=== PATIENT | male | born 1960 | race Caucasian/White ===

== ENCOUNTER 2016-09-19 08:10 | Inpatient (IN) | payer OTHER ==
[~2016-09-19] VITALS: Ht 170.2 cm; Wt 64.9 kg
[~2016-09-19 08:10] MED LIST: GOOD SENSE IBU200 MG PO; NORCO 325 MG-51 TAB PO; XARELTO15 MG PO
--- NOTE | 2016-09-19 08:22 | NUR ---
Informed waiting has been performed.
--- NOTE | 2016-09-19 08:22 | NUR ---
TRIAGE: PT TO ER C/C PAIN TO L LEG FROM CALF UP TO THIGH AREA. WOKE UP WITH SAME YESTERDAY MORNING, CONSTANT AND WORSENING SINCE ONSET. NO KNOWN INJURY OR AGGRAVATING FACTOR. HX BLOOD CLOT TO RLE FEW YEARS AGO, FEELS SIMILIAR.
--- NOTE | 2016-09-19 08:46 | ED UPPER/LOWER EXTREMITY COMPL ---
History of Present Illness General Chief Complaint: Lower Extremity Problems Stated Complaint: LEFT LEG, CALF/KNEE PAIN, SOLLWEN, WARM TO TOUCH Source: patient Exam Limitations: no limitations Vital Signs & Intake/Output Vital Signs & Intake/Output Vital Signs Date Time Temp Pulse Resp B/P Pulse O2 O2 Flow FiO2 Ox Delivery Rate 09/20 06 98.5 73 20 138/78 94 09/19 2223 98.1 69 18 134/80 94 Room Air 09/19 1600 Room Air 09/19 1320 98.6 81 18 140/79 94 Room Air 09/19 1320 94 Room Air ED Intake and Output 09/20 0000 09/19 1200 Intake Total 300 1000 Output Total 300 Balance 0 1000 Intake, IV 1000 Intake, Oral 300 Output, Urine 300 Patient 143 lb 143 lb Weight Allergies Uncoded Allergies: SEASONAL ALLERGIES (Intermediate, NASAL CONGESTION 06/03/14) Reconcile Medications Acetaminophen/Hydrocodone Bi ([place] 325 MG-5 MG) 1 TAB TAB 1-2 TAB PO Q6P PRN DVT Ibuprofen 200 MG TABLET 8 TAB PO DAILY PAIN (Reported) Rivaroxaban (Xarelto) 15 MG TABLET 1 TAB PO BID DVT Triage Note: TRIAGE: PT TO ER C/C PAIN TO L LEG FROM CALF UP TO THIGH AREA. WOKE UP WITH SAME YESTERDAY MORNING, CONSTANT AND WORSENING SINCE ONSET. NO KNOWN INJURY OR AGGRAVATING FACTOR. HX BLOOD CLOT TO RLE FEW YEARS AGO, FEELS SIMILIAR. Triage Nurses Notes Reviewed? yes Onset: Abrupt Duration: day(s): (1 day leg pain), week(s): (FEW WEEKS SOB) Severity: moderate Pain/Injury Location: Left: Leg. Modifying Factors: Worsens With: movement. Associated Symptoms: swelling HPI: 56 year old male presents to the ER for chief complaint of left sided leg pain that started yesterday behind the knee and associated swelling. He tried soaking it overnight several times in water without relief. No trauma, recent travel or immobilization. Symptoms were only presents for 1 day. Admits to recent worsening shortness of breath with exertion. He was at an urgent care two week ago and diagnosed with bronchitis. No chest pain or palpitations. In May he abruptly stopped his coumadin. He states that Dr. Anglin was supposed to call him back to adjust his dose and never called so then he just decided to stop it all together. He is unaware of any familial clotting disorder but his mother also had a DVT. He was on it for a previous DVT in the right leg. No history of PE. No IVC filter. Past History Travel History Traveled to [place] past 21 day No Medical History Any Pertinent Medical History? 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 Yes Review of Systems Review of Systems Constitutional: Denies: chills, fever. EENTM: Reports: no symptoms. Respiratory: Reports: cough, short of breath. Denies: sputum production. Cardiovascular: Reports: peripheral edema. Denies: chest pain, palpitations, syncope. Gastrointestinal/Abdominal: Denies: abdominal pain. Genitourinary: Reports: no symptoms. Musculoskeletal: Reports: muscle pain. Skin: Reports: no symptoms. Neurological/Psychological: Denies: numbness, tingling, weakness. Hematologic/Endocrine: Denies: bruising, bleeding, polyuria, polydipsia. Immunological: Denies: splenectomy. All Other Systems: Reviewed and Negative Physical Exam Physical Exam General Appearance: well developed/nourished, alert, awake, mild distress, moderate distress Head: atraumatic Eyes: Bilateral: PERRL, EOMI. Ears, Nose, Throat: normal pharynx, normal ENT inspection, hearing grossly normal Neck: normal inspection, supple Cardiovascular/Respiratory: regular rate/rhythm, rhonchi Peripheral Pulses: 2+ radial (R), 2+ radial (L), 2+ dorsalis pedis (R), 2+ dorsalis pedis (L) Gastrointestinal: soft nontender Back: normal inspection Leg Left: swelling, pain, soft tissue tenderness, POSITIVE JASPREET Leg Right: normal range of motion, normal inspection Hip Left: normal range of motion, normal inspection Hip Right: normal range of motion, normal inspection Knee Left: normal range of motion, normal inspection Knee Right: normal range of motion, normal inspection Foot Left: normal inspection, normal range of motion Foot Right: normal inspection, normal range of motion Neurologic/Tendon: normal sensation, normal motor functions, normal tendon functions Skin: intact, normal color, warm/dry Lymphatic: no anterior cervical evy Progress Differential Diagnosis: DVT, sprain, POPLITEAL CYST, PE Plan of Care: Orders Procedure Date/time Status LIPID PANEL 09/20 0600 Complete House Staff 09/20 UNK Active PARTIAL THROMBOPLASTIN TIME 09/19 1700 Complete Vital Signs 09/19 132 Active Teach/Educate 09/19 132 Active Pain Treatment and Response 09/19 132 Active Nutritional Intake, Monitor 09/20 1323 Active Isolation 09/19 132 Active Intake & Output 09/19 132 Active Patient Care Conference 09/20 1323 Active Activity/Ambulation 09/19 132 Active MISSING MEDICATION FORM 09/19 UNK Active Current Medications Sig/Amaya Start time Last Medication Dose Stop Time Status Admin Warfarin Sodium 6 MG COUMADIN 1700 ONE 09/20 1700 CAN (Coumadin) 09/20 1701 Nicotine 14 MG DAILY 09/19 2200 AC (Nicotine Cq) Acetaminophen 650 MG Q6P PRN 09/19 1145 AC (Tylenol) Oxycodone/ 1 TAB Q6P PRN 09/19 1145 AC Acetaminophen (Percocet) Laboratory Tests 09/20/16 0630: Anion Gap 7, Estimated GFR > 60, BUN/Creatinine Ratio 15.0, Triglycerides 77, Cholesterol 126, LDL Cholesterol, Calc 52 L, HDL Cholesterol 59, Cholesterol/ HDL Ratio 2, PT 12.9 H, INR 1.23 H, CBC w Diff NO MAN DIFF REQ, RBC 4.77, MCV 96.4 H, MCH 32.2 H, RDW 15.2 H, MPV 9.0, Gran % 66.8, Lymphocytes % 16.8 L, Monocytes % 9.1, Eosinophils % 6.9 H, Basophils % 0.4, Absolute Granulocytes 7.0 H, Absolute Lymphocytes 1.7, Absolute Monocytes 0.9 H, Absolute Eosinophils 0.7, Absolute Basophils 0, PUBS MCHC 33.4 09/19/16 1701: APTT 79 H Diagnostic Imaging: Viewed by Me: CT Scan, Ultrasound. Discussed w/RAD: CT Scan, Ultrasound. Radiology Impression: PATIENT: ADRIANA BREWER PRESENT AGE: 56 PATIENT ACCOUNT NO: [id number] : 58 LOCATION: [facility] ORDERING PHYSICIAN: RAHEEL BARBOZA MD SERVICE DATE: 09/19/16 EXAM TYPE: US - US-UNILATERAL VENOUS DOPPLER EXAMINATION: US TRIPLEX LOWER EXTREMITY, LEFT CLINICAL INFORMATION: Left leg pain, swelling. History of DVT. COMPARISON: Right lower extremity deep venous Doppler study done on 06/02/2014 (was positive at that time). TECHNIQUE: Color-flow triplex imaging with spectral analysis and compression Doppler were performed on the left lower extremity. FINDINGS: Occlusive thrombus is present extending between the proximal part of the left femoral vein to the calf veins. The left common femoral vein is patent. There is a 1.6 x 0.5 x 1.3 cm popliteal fossa, Gan's cyst present. The right common femoral vein was also evaluated, and is patent. IMPRESSION: Positive study for DVT. Occlusive thrombus is noted starting at proximal thigh to the calf. Both common femoral veins are however patent. This critical result was discussed with Dr. Barboza at 9:56 AM on 09/19/2016 and it was ascertained that the content and urgency of the report was understood at the time of direct communication. 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 <Electronically signed in Other Vendor System> SIGNED BY: BUDDY RENO MD 09/19/16 0959 Initial ED EKG: NSR Departure Departure Time of Disposition: 1035 Disposition: STILL A PATIENT Condition: Stable Clinical Impression Primary Impression: Pulmonary embolism Secondary Impressions: DVT (deep venous thrombosis), Tobacco abuse Referrals: SHERWIN ORANTES DO (PCP/Family) Departure Forms: Customer Survey General Discharge Information Admission Note Spoke With: NAWAF LORA M.D Documentation of Exam: Documentation of any treatments & extenuating circumstances including Concerns Regarding Discharge (functional status, medication knowledge or non-compliance, living conditions, etc.) that warrant an admission rather than observation: [IV HEPARIN, MONITOR COAGS, ORAL ANTICOAGULATION, VASCULAR CONSULTATION]
--- NOTE | 2016-09-19 09:13 | NUR ---
BLOOD DRAWN AND SENT TO LAB. LAV,SST,BLUE,SHAW,PINK.
[2016-09-19 09:30] LABS: PT 12.6 SEC (9.4-12.5); PTT 29 SEC (25-37)
[2016-09-19 09:35] LABS: ABSOLUTE BASOPHIL COUNT 0.1 /CUMM (0.0-0.2); ABSOLUTE EOSINOPHIL COUNT 0.1 /CUMM (0.0-0.7); ABSOLUTE GRANULOCYTE CT 10.3 /CUMM (1.4-6.5); ABSOLUTE MONOCYTE COUNT 1.1 /CUMM (0.10-0.60); BASOPHIL % 0.7 % (0.0-2.0); EOSINOPHIL % 1.1 % (0-5); GRANULOCYTE % 81.5 % (42.2-75.2); MEAN CORPUSCULAR HGB 32.4 PG (27.0-31.0); MEAN CORPUSCULAR HGB CONC 34.1 G/DL (33.0-37.0); MEAN PLATELET VOLUME 8.4 FL (7.4-10.4); RBC DISTRIBUTION WIDTH 14.5 % (11.5-14.5); RED BLOOD CELL CT 4.95 /CUMM (4.70-6.10); WHITE BLOOD CELL COUNT 12.6 /CUMM (4.8-10.8)
[2016-09-19 09:39] LABS: PLATELET COUNT 83 /CUMM (130-400)
--- NOTE | 2016-09-19 09:39 | NUR ---
RETURNED FORM US.
--- NOTE | 2016-09-19 09:49 | NUR ---
IV STARTED, MEDICATED FOR PAIN WITH TORADOL 30 MG IV.
--- NOTE | 2016-09-19 09:59 | ULTRASOUND REPORT ---
EXAMINATION: US TRIPLEX LOWER EXTREMITY, LEFT CLINICAL INFORMATION: Left leg pain, swelling. History of DVT. COMPARISON: Right lower extremity deep venous Doppler study done on 06/02/2014 (was positive at that time). TECHNIQUE: Color-flow triplex imaging with spectral analysis and compression Doppler were performed on the left lower extremity. FINDINGS: Occlusive thrombus is present extending between the proximal part of the left femoral vein to the calf veins. The left common femoral vein is patent. There is a 1.6 x 0.5 x 1.3 cm popliteal fossa, Gan's cyst present. The right common femoral vein was also evaluated, and is patent. IMPRESSION: Positive study for DVT. Occlusive thrombus is noted starting at proximal thigh to the calf. Both common femoral veins are however patent. This critical result was discussed with Dr. Barboza at 9:56 AM on 09/19/2016 and it was ascertained that the content and urgency of the report was understood at the time of direct communication.
--- NOTE | 2016-09-19 10:17 | NUR ---
TO CT SCAN.
--- NOTE | 2016-09-19 11:03 | History & Physical ---
ROBINCHAOAnnmarieZULMA 09/19/16 1102: General Information and HPI MD Statement: I have seen and personally examined ADRIANA BREWER and documented this H& P. The patient is a 56 year old M who presented with a patient stated chief complaint of [left leg swelling, intermittent shortness of breath and new DVT/BL PE]. Source of Information: patient, old records Exam Limitations: no limitations History of Present Illness: Mr Brewer is a 56-year-old gentleman with a PMH of previously unprovoked RLE DVT in May 2014 (managed on Xarelto but switch to warfarin in September 2014 due to side effects), tobacco dependence who presents with complaints of left lower leg pain and swelling. Symptoms started on Tuesday morning with what he describes as a pulling sensation behind his left knee that progressed as the day went on to include swelling and redness of the calf. By the end of the day the pain was noticeably more pronounced with mild relief using hot water. He was previously diagnosed with his DVT in May 2014, started on Xarelto with noticeable systemic symptoms (flulike symptoms, generalized weakness) and was transitioned to warfarin which she had been on since September 2014. The patient reports that he had been following up with Dr. Montague with occasional ultrasound performed to assess clot burden in the right lower leg. He received a call in May stating that he is INR number was elevated and stopped taking Coumadin at that time. Unfortunately, due to unclear reasons he did not restart the Coumadin and has been off this since May. Over the past 4 months he reports occasional exertional shortness of breath, morning productive cough with clear sputum. He followed up at the [facility] on 09/[facility], was started on clarithromycin for DDX bronchitis along with Flexeril for TMJ/ L ear congestion. He reports an interval improvement in the morning cough since then. ROS: He denies any chest pain, palpitations, nausea, vomiting, hemoptysis, abdominal pain, bloody stools, fevers or chills. Allergies/Medications Allergies: Uncoded Allergies: SEASONAL ALLERGIES (Intermediate, NASAL CONGESTION 06/03/14) Home Med list Acetaminophen/Hydrocodone Bi ([place] 325 MG-5 MG) 1 TAB TAB 1-2 TAB PO Q6P PRN DVT Ibuprofen 200 MG TABLET 8 TAB PO DAILY PAIN (Reported) Rivaroxaban (Xarelto) 15 MG TABLET 1 TAB PO BID DVT Past History Travel History Traveled to [place] past 21 day No Medical History Neurological: NONE EENT: NONE Cardiovascular: NONE Respiratory: NONE Gastrointestinal: NONE Hepatic: NONE Renal: NONE Musculoskeletal: FX ARM AND LEG Psychiatric: NONE Endocrine: NONE Blood Disorders: DVT Cancer(s): NONE 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 Home Who Do You Live With? spouse Services at Home: None Primary Language: Tamazight Smoking Status: Current Some Day Smoker ETOH Use: 2 BEERS PER DAY Illicit Drug Use: denies illicit drug use Functional Ability ADLs Independent: dressing, eating, toileting, bathing. Ambulation: independent IADLs Independent: shopping, housework, finances, food prep, telephone, transportation , medication admin. Employment History Employment Employed Profession/Employer [employer] Review of Systems Review of Systems Constitutional: Reports: see HPI. EENTM: Reports: see HPI. Cardiovascular: Reports: no symptoms. Respiratory: Reports: see HPI. GI: Reports: no symptoms. Genitourinary: Reports: no symptoms. Musculoskeletal: Reports: see HPI. Skin: Reports: see HPI. Neurological/Psychological: Reports: no symptoms. Hematologic/Endocrine: Reports: see HPI. Exam & Diagnostic Data Last 24 Hrs of Vital Signs/I&O Vital Signs Date Time Temp Pulse Resp B/P Pulse O2 O2 Flow FiO2 Ox Delivery Rate 09/19 1107 97.2 82 16 136/80 95 Room Air 09/19 0820 98.9 100 20 127/81 94 Room Air Intake & Output 09/19 1600 09/19 0800 09/19 0000 Intake Total 1000 Output Total Balance 1000 Intake, IV 1000 Patient 143 lb Weight Physical Exam General Appearance Alert, Oriented X3, Cooperative, No Acute Distress Skin No Significant Lesion, Left calf is warm to touch, slightly erythematous relative to the right HEENT PERRLA, EOMI, Mucous Membr. moist/pink Cardiovascular Regular Rate, Normal S1, Normal S2, S4 gallop Lungs Normal Air Movement Abdomen Normal Bowel Sounds, Soft, No Tenderness Neurological Normal Speech, Normal Tone, Sensation Intact Extremities Normal Pulses, THe left calf is enlarged relative to the right, tense to palpation Vascular Pulses Symmetrical Last 24 Hrs of Labs/Vincenzo: Laboratory Tests 09/19/16 0911: Anion Gap 7, Estimated GFR > 60, BUN/Creatinine Ratio 12.5, Glucose 106 H, Calcium 9.2, Total Bilirubin 1.3, AST 20, ALT 31, Alkaline Phosphatase 89, Troponin I < 0.01, [id number] Pept 48.9, Total Protein 6.9, Albumin 3.9, Globulin 3.0, Albumin/Globulin Ratio 1.3, PT 12.6 H, INR 1.20 H, APTT 29, CBC w Diff NO MAN DIFF REQ, RBC 4.95, MCV 95.0 H, MCH 32.4 H, RDW 14.5, MPV 8.4, Gran % 81.5 H, Lymphocytes % 8.1 L, Monocytes % 8.6, Eosinophils % 1.1, Basophils % 0.7, Absolute Granulocytes 10.3 H, Absolute Lymphocytes 1.0 L, Absolute Monocytes 1.1 H, Absolute Eosinophils 0.1, Absolute Basophils 0.1, PUBS MCHC 34.1 Diagnostic Data EKG Results Sinus rhythm, HR 91 BPM. CO interval 120. QTC 448 Other Results Venous Doppler ultrasound left lower extremity. Occlusive thrombus is present extending between the proximal part of the left femoral vein to the calf veins. The left common femoral vein is patent. There is a 1.6 x 0.5 x 1.3 cm popliteal fossa, Gan's cyst present. The right common femoral vein was also evaluated, and is patent. Chest CTA: 1. Abnormal CT of the chest showing evidence of bilateral lower lobar, and segmental pulmonary embolism. 2. Nonspecific subpleural linear prominent lung markings are noted at both upper lobe anteriorly, likely represent chronic changes secondary to smoking, developing nonspecific interstitial lung changes. In addition, superimposed few nonspecific patchy airspace disease is noted at right lateral costophrenic sulcus, anterior inferior aspect of the lingula and right middle lobe, likely represent hypoventilatory, atelectatic changes. Assessment/Plan Assessment: 56-year-old gentleman with a PMH of 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 Patient stopped taking his Coumadin in May 2017 without follow-up. He endorsed 4 months duration of occasional exertional SOB, morning productive cough with clear sputum. He was seen at the [facility] on 08/30/2016 and started on clarithromycin for DDX bronchitis, Flexeril for TMJ/left ear congestion. Problem list: 1. Bilateral PE 2. LLE DVT with previous Hx of RLE DVT (unprovoked) 3. Thrombocytopenia 4. Tobacco dependence Plan: * Hemodynamically stable at this time. Patient stable to be admitted [facility] * He was started on heparin drip. Will transition him to lovenox (1mg/kg BID) = 65mg BID based on his weight. Heparin drip to stop at 2100hrs this evening and start lovenox @ 2200hrs. AM team: Discuss options with case management on insurance approval for NOAC. Previously on Xarelto with reported side effects of flulike symptosm. He does express some apprehension to be on warfarin due to required weekly INR checks. Patient will require lifelong AC * Vascular consult in the AM to discuss utility of IVC filter * Thrombocytopenia: possibly secondary to recent clarithromycin therapy. Obtain records from his PCP on tuesday to get a more recent baseline platelet count. Repeat CBC in the AM * Nicotine patch 14mg daily * Heart healthy diet * Lipid panel in the AM * DVT prophylaxis - lovenox 65mg/kg BID * Full code As Ranked By This Provider Problem List: 1. Pulmonary embolism 2. DVT (deep venous thrombosis) 3. Thrombocytopenia 4. Tobacco dependence Core Measures/Miscellaneous Acute Coronary Syndrome ACS Diagnosis: No Cerebrovascular Accident CVA/TIA Diagnosis: No Congestive Heart Failure CHF Diagnosis: No Venous Thromboembolism VTE Risk Factors: Age > 40 [address] [facility] VTE prophylaxis d/t: No contraindications No VTE Pharm Prophylaxis d/t: No contraindications VTE Diagnosis: Yes VTE Type: Pulmonary Embolism VTE Confirmed by (Test): LUNG SCAN (V/Q) Severe Sepsis Severe Sepsis Present: No Septic Shock Septic Shock Present: No Miscellaneous Documentation Attending Case Discussed With: NAWAF LORA M.D Primary Care Physician: SHERWIN ORANTES DO Patient sees these Specialists Dr Montague Level of Patient Care: General Medicine Resident Review Statement Resident Statement: examined this patient, discussed with chief internal auditor, agreed with chief internal auditor, discussed with family, reviewed EMR data (avail), discussed with nursing , reviewed images NAWAF LORA MD 09/19/16 1521: Attending MD Review Statement Attending Statement Attending MD Statement: examined this patient, discuss w/resident/PA/PORTAL ADMINISTRATOR, agreed w/resident/PA/PORTAL ADMINISTRATOR, reviewed EMR data (avail), discussed with nursing, discussed with case mgmt, amended to note Attending Assessment/Plan: Patient seen and examined. I reviewed and agree with the history as documented by the resident above. It appears that patient stopped taking his Coumadin without notifying his medical doctors about 4 months ago. He developed right lower extremity tightness yesterday that progressed. He reports difficulty ambulating and came to the emergency room for evaluation today. He has also complained of exertional dyspnea for the past few months. He has now been diagnosed with new right lower extremity DVT and bilateral pulmonary embolism. On examination his nose any distress. He is not requiring oxygen supplementation. Lungs are clear bilaterally. He does have right cough swelling and tenderness. Distal pulses are palpable. There is no evidence of bleeding ischemia. He will require full dose anticoagulation. He is reluctant to start NOAC after not tolerating Xarelto in the past. He reports difficulty ambulating and is also reluctant to go home with self bridging of Lovenox therapy. Recommendations: -Admit to the inpatient general medical service. -Transition from heparin started emergency room to Lovenox therapy. -Begin Coumadin and continue Lovenox bridging until INR is between 2 and 3. -Please notify the vascular surgery service due to the extensive nature of these lower extremity DVT. -Would recommend outpatient hematology follow-up for further workup given his unprovoked recurrent DVT and significant family history of DVT in 2 family members. -Monitor his thrombocytopenia closely. If patient develops any evidence of bleeding recommend holding anticoagulation therapy and consult the hematology service. -His leukocytosis is likely reactive. We'll monitor closely.
--- NOTE | 2016-09-19 11:05 | NUR ---
PAIN IN LEFT THIGH DECREASED TO 1/10. HEAPRIN DRIP STARTED AT 1100, 25,000 UNITS IN .45 NS AT 23.4 UNITS PER HOUR, AFTER BOLUS OF 5000 UNITS. (VTE PROTOCOL)
--- NOTE | 2016-09-19 11:39 | NUR ---
PT ADMITTED TO ROOM 205-1
--- NOTE | 2016-09-19 11:56 | CT SCAN REPORT ---
EXAMINATION: CT ANGIOGRAM OF THE CHEST WITH AND WITHOUT CONTRAST (CT PULMONARY ANGIOGRAM FOR PE) CLINICAL INFORMATION: Pulmonary embolism. Shortness of breath with exertion. COMPARISON: Left lower extremity DVT study done earlier today. TECHNIQUE: Prior to contrast administration, noncontrast localization images were obtained. Subsequently, multidetector volumetric imaging was performed from the thoracic inlet to below the diaphragms following the administration of 95 mL Optiray 350 intravenous contrast. No contrast reaction reported. Sagittal, coronal, and MIP oblique sagittal reformatted images were obtained on the CT workstation, uploaded to PACS, and reviewed. Total exam dose-length product 344.14 mGy-cm. FINDINGS: QUALITY OF STUDY/CONTRAST BOLUS: Satisfactory. PULMONARY ARTERIES: Evidence of intraluminal filling defects are noted within the proximal part of both lower lobar pulmonary arteries extending into the segmental branches, consistent with bilateral pulmonary emboli. The remainder of the pulmonary arterial tree appeared patent. THORACIC AORTA: No aneurysm or dissection. LUNG: Nonspecific airspace opacities are noted at both lung apices, likely represent pleural parenchymal scar. Mild emphysematous changes are noted at both lung apices. Mild subpleural interstitial prominent lung markings are noted at both upper lobe anteriorly, chronic appearing, may represent changes secondary to smoking, developing nonspecific interstitial lung changes. Focal patchy airspace disease is noted at right lateral costophrenic sulcus, and also along the anteroinferior aspect of the lingula, and right middle lobe (see the baugh images), likely represent hypoventilatory, atelectatic changes. PLEURA: No pleural effusion or pneumothorax. MEDIASTINUM: Normal heart size. No pericardial effusion. No hilar or mediastinal lymphadenopathy. No evidence of septal bowing or right heart strain. CHEST WALL/AXILLA: No axillary or internal mammary lymphadenopathy. OSSEOUS STRUCTURES: No acute or suspicious osseous abnormality. UPPER ABDOMEN: Unremarkable. No reflux of contrast into the hepatic veins to suggest elevated right heart pressures. IMPRESSION: 1. Abnormal CT of the chest showing evidence of bilateral lower lobar, and segmental pulmonary embolism. 2. Nonspecific subpleural linear prominent lung markings are noted at both upper lobe anteriorly, likely represent chronic changes secondary to smoking, developing nonspecific interstitial lung changes. In addition, superimposed few nonspecific patchy airspace disease is noted at right lateral costophrenic sulcus, anterior inferior aspect of the lingula and right middle lobe, likely represent hypoventilatory, atelectatic changes. VTE: positive This critical result was discussed with Dr. Barboza at 10:25 a.m. on 09/19/2016 and it was ascertained that the content and urgency of the report was understood at the time of direct communication.
--- NOTE | 2016-09-19 11:58 | NUR ---
DR. GUTIERREZ IN TO EVALUATE.
--- NOTE | 2016-09-19 12:49 | NUR ---
REPORT TO FLOOR.
[2016-09-19 13:20] VITALS: BP 140/79
--- NOTE | 2016-09-19 13:43 | NUR ---
1315 PATIENT ARRIVED TO FLOOR ALERT AND ORIENTED X 3. VITAL SIGNS STABLE. DENIES CHEST PAIN. + PULSES STEADY GAIT. HEPARIN DRIP RUNNING. SKIN C/D/I. NO DISCOMFORT NOTED BED LOW AND LOCKED. CALL LIGHT WITHIN REACH. WILL CONTINUE TO MONITOR
--- NOTE | 2016-09-19 15:21 | Admission Certification ---
Admission Certification Certification Statement - As attending physician, I certify that at the time of - admission, based on clinical presentation, severity of - symptoms, need for further diagnostic testing and - therapeutic interventions, and risk of adverse outcomes - without in-hospital treatment, in my clinical assessment, - this patient requires an acute hospital stay for a minimum - of two nights or longer. I have also considered psychsocial - factors such as support system, advanced age, financial - issues, cognitive issues, and failed out-patient treatments, - past re-admission history, safety of patient, and lack of - compliance as applicable. Specific rationale supporting this admission is: Patient is being admitted for full dose anticoagulation. he does no want to try any other new oral anticoagulation therapy. He is hesitant to be discharged home on Coumadin with Lovenox bridging. He will require monitoring until his INR is therapeutic.
[2016-09-19 17:53] LABS: PTT 79 SEC (25-37)
--- NOTE | 2016-09-19 19:02 | Event Note ---
Event Note Event Note: Situtation: 56 yo m with previous hx of dvt/pe presented with leg pain and shortness of breath. A Brief Assesment * CTA was remarkable for b/l pe and unilateral DVT. * Vascular was notified (Dr Cruz office, as he followed this patient during previopus episodes) * Patient already started on Heparin with transition to Lovenox and Coumadin. * He is hemodynamicall stable and saturating well on RA with no apparent respiratory distress. Assement Bilateral PE with unilateral DVT in a patient with a hx of unprovoked embolisms and positive family hx (mom and brother) lost to followup with no anticoagulation for 3-4 months. We will continue medical management with Lovenox and coumadid bridging (started 7.5m coumadin today because patient reports taking 7.5mg from his old supply). Will target INR 2-3 range. Will await further vascular reccomendation.
--- NOTE | 2016-09-19 20:31 | Cons- Vascular Surgery ---
General Information and HPI Consulting Request Date of Consult: 09/19/16 Requested By: NAWAF LORA M.D Reason for Consult: DVT\\PE in pt with known history of DVT Source of Information: patient Exam Limitations: no limitations History of Present Illness: 56 yo pt with a history of RLE DVT and strong family history of DVT's in both mother and brother. Has been on xarelto in the past but had bad "flu like symptom" reactions to it. Was therefore on coumadin however he stopped taking it 12\\16 after an INR was noted to be a bit high and he was holding it temporarily. Unknown why he never restarted the coumadin. Presents today with LLE pain and cellulitis as well as SOB with exertion. Diagnosed with LLE DVT and bilateral lower lobe PE's Started on a heparin drip today with the plan to convert to lovenox (therapeutic dose) as a bridge to coumadin. Vascular consulted for recommendations Allergies/Medications Allergies: Uncoded Allergies: SEASONAL ALLERGIES (Intermediate, NASAL CONGESTION 06/03/14) Home Med List: Acetaminophen/Hydrocodone Bi ([place] 325 MG-5 MG) 1 TAB TAB 1-2 TAB PO Q6P PRN DVT Ibuprofen 200 MG TABLET 8 TAB PO DAILY PAIN (Reported) Rivaroxaban (Xarelto) 15 MG TABLET 1 TAB PO BID DVT Current Medications: Current Medications Sig/Amaya Start time Last Medication Dose Route Stop Time Status Admin Acetaminophen 650 MG Q6P PRN 09/19 1145 AC PO Enoxaparin Sodium 65 MG BID 09/19 2200 AC SC Heparin Sodium 0 .STK-MED ONE 09/19 1043 DC (Porcine) .ROUTE Heparin Sodium 5,000 UNIT ONCE ONE 09/19 1030 DC 09/19 (Porcine) IV 09/19 1031 1101 Heparin Sodium 25,000 UNIT Q24H 09/19 1030 AC 09/19 (Porcine) IV 09/19 2100 1101 Sodium Chloride 500 ML Ketorolac 30 MG ONCE ONE 09/19 1000 DC 09/19 Tromethamine IV 09/19 1001 1017 Ketorolac 0 .STK-MED ONE 09/19 0923 DC Tromethamine .ROUTE Ketorolac 30 MG ONCE ONE 09/19 0900 CAN Tromethamine IM 09/19 0901 Nicotine 14 MG DAILY 09/19 1300 AC TOP Oxycodone/ 1 TAB Q6P PRN 09/19 1145 AC Acetaminophen PO Oxycodone/ 2 TAB Q6P PRN 09/19 1145 AC 09/19 Acetaminophen PO 1916 Patient Medication 1 UNIT ONE NR 09/19 1200 DC Teaching ED 09/19 1230 Patient Medication 1 UNIT ONE NR 09/19 1145 DC Teaching ED 09/19 1200 Sodium Chloride 1,000 ML BOLUS ONE 09/19 0900 DC 09/19 IV 09/19 0959 0949 Warfarin Sodium 6 MG COUMADIN 1700 ONE 09/20 1700 CAN PO 09/20 1701 Warfarin Sodium 7.5 MG COUMADIN 1700 ONE 09/19 1903 DC PO 09/19 1904 Past History Medical History Blood Transfusion Hx: No Neurological: NONE EENT: TMJ Cardiovascular: history of dvt Respiratory: NONE Gastrointestinal: NONE Hepatic: NONE Renal: NONE Musculoskeletal: FX ARM AND LEG TMJ Psychiatric: NONE Endocrine: NONE Blood Disorders: DVT Cancer(s): NONE ONSHORE DIVER/Reproductive: NONE Surgical History Pertinent Surgical History: RIGHT KNEE LIGAMENT REPAIR Psychosocial History Where Do You Live? Home Who Do You Live With? spouse Services at Home: None Primary Language: Japanese Smoking Status: Current Some Day Smoker ETOH Use: 2 BEERS PER DAY Illicit Drug Use: denies illicit drug use Functional Ability ADLs Independent: dressing, eating, toileting, bathing. Ambulation: independent IADLs Independent: shopping, housework, finances, food prep, telephone, transportation , medication admin. Employment History Employment: Employed Profession/Employer: [employer] Review of Systems Review of Systems: Pain in LLE - greatest at the knee No SOB at this time Exam & Diagnostic Data Vital Signs and I&O Vital Signs Date Time Temp Pulse Resp B/P Pulse O2 O2 Flow FiO2 Ox Delivery Rate 09/19 1600 Room Air 09/19 1320 98.6 81 18 140/79 94 Room Air 09/19 1320 94 Room Air 09/19 1107 97.2 82 16 136/80 95 Room Air 09/19 0820 98.9 100 20 127/81 94 Room Air Intake & Output 09/19 1600 09/19 0800 09/19 0000 09/18 1600 09/18 0800 09/18 0000 Intake Total 1000 Output Total 300 Balance 700 Intake, IV 1000 Output, Urine 300 Patient 143 lb Weight Physical Exam: afebrile, VSS General: alert and oriented times three Chest: clear anteriorly bilaterally, RRR Abd: soft, good bs Ext: LLE swollen calf and tender with circumferential erythema, tender to palpation of popliteal fossa and calf, nontender thigh and foot. Good 2+ pulses at L femoral, DP and PT Assessment/Plan Assessment/Plan 56 yo male with history of DVT - off anticoagulation, now admitted with LLE DVT and bilateral PE Discussed with Dr Bautista Anticoagulate as needed - will be lifelong. Would consider eliquis rather than coumadin as patient is really noncompliant with coumadin due to INR requirements etc and he really doesn't want to take it. Pt is agreeable to trying a different anticoagulant. Vascular MD will see pt tomorrow Copies To: OLVIN OLSEN,RAFAEL Consult Acknowledgment - Thank you for your consult request.
[2016-09-19 22:23] VITALS: BP 134/80
[2016-09-20 06:26] VITALS: BP 138/78
[2016-09-20 07:47] LABS: ABSOLUTE BASOPHIL COUNT 0 /CUMM (0.0-0.2); ABSOLUTE EOSINOPHIL COUNT 0.7 /CUMM (0.0-0.7); ABSOLUTE LYMPH COUNT 1.7 /CUMM (1.2-3.4); ABSOLUTE MONOCYTE COUNT 0.9 /CUMM (0.10-0.60); BASOPHIL % 0.4 % (0.0-2.0); EOSINOPHIL % 6.9 % (0-5); GRANULOCYTE % 66.8 % (42.2-75.2); MEAN CORPUSCULAR HGB 32.2 PG (27.0-31.0); MEAN CORPUSCULAR HGB CONC 33.4 G/DL (33.0-37.0); MEAN CORPUSCULAR VOLUME 96.4 FL (80.0-94.0); PLATELET COUNT 94 /CUMM (130-400); RBC DISTRIBUTION WIDTH 15.2 % (11.5-14.5); RED BLOOD CELL CT 4.77 /CUMM (4.70-6.10); WHITE BLOOD CELL COUNT 10.4 /CUMM (4.8-10.8)
[2016-09-20 08:19] LABS: PT 12.9 SEC (9.4-12.5)
--- NOTE | 2016-09-20 08:48 | PN- Housestaff ---
CHRIS OLSEN,ANTHONY 09/20/16 0847: Subjective Follow-up For: DVT/BILATERAL PE Subjective: CONSIDER EXAMINED AT BEDSIDE. He is laying comfortably with no acute complaint of increased shortness of breath, chest pain, pleuritic pain, palpitation, nausea, vomiting fever, chills. No dysuria. No Acute overnight event reported by nursing staff. Review of Systems Constitutional: Reports: no symptoms. Objective Last 24 Hrs of Vital Signs/I&O Vital Signs Date Time Temp Pulse Resp B/P Pulse O2 O2 Flow FiO2 Ox Delivery Rate 09/20 1424 98.3 74 20 120/84 95 Room Air 09/20 0626 98.5 73 20 138/78 94 09/19 2223 98.1 69 18 134/80 94 Room Air Intake & Output 09/20 1600 09/20 0800 09/20 0000 Intake Total 720 120 300 Output Total Balance 720 120 300 Intake, Oral 720 120 300 Number 0 Bowel Movements Physical Exam General Appearance: Alert, Oriented X3, Cooperative Skin: No Significant Lesion Cardiovascular: Regular Rate, Normal S1, Normal S2 Lungs: Normal Air Movement Abdomen: Normal Bowel Sounds, Soft, No Tenderness, No Hepatospenomegaly, No Masses Neurological: Normal Tone, Sensation Intact Extremities: left-sided calf tenderness Assessment/Plan Assessment: 56-year-old gentleman with a PMH of 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 Patient stopped taking his Coumadin in May 2017 without follow-up. He endorsed 4 months duration of occasional exertional SOB, morning productive cough with clear sputum. He was seen at the [facility] on 08/30/2016 and started on clarithromycin for DDX bronchitis, Flexeril for TMJ/left ear congestion. Problem list: 1. Bilateral PE 2. LLE DVT with previous Hx of RLE DVT (unprovoked) 3. Thrombocytopenia 4. Tobacco dependence Plan: * Hemodynamically stable and attaining a goal saturation in room air. Patient is stable for discharge * Status post heparin and Lovenox which was started last night, will switch patient to request to milligram twice a day for 1 week and then 5 mg twice a day thereafter * Patient is instructed to follow-up with Dr. Ema Bright vascular within 1 week of discharge * Patient is also instructed to follow-up with the referral with outpatient hematology Patient counseled about compliance and the importance of continuing his anticoagulation therapy * Smoking cessation counseling was reiterated again Problem List: 1. DVT of lower extremity (deep venous thrombosis) 2. Pulmonary embolism Pain Ratin Pain Location: LLE Pain Goal: Remain pain free Pain Plan: PAIN PATHWAY Tomorrow's Labs & Rationales: NONE-DISCHARGE HAKAN DIAZ 09/20/16 1153: Attending MD Review Statement Attending Statement Attending MD Statement: examined this patient, discuss w/resident/PA/DIE MAKER TRIM, agreed w/resident/PA/DIE MAKER TRIM, discussed with family, reviewed EMR data (avail), discussed with nursing, discussed with case mgmt, reviewed images Attending Assessment/Plan: 56 h/o non compliance with Coumadin developed right lower extremity tightness and difficulty ambulating and came to the emergency room for SOB on exertion. He has now been diagnosed with new LEFT lower extremity DVT and bilateral pulmonary embolism. ASSESSEMENT AND PLAN 1. B/L PE 2. left lower extremity DVT 3. Thrombocytopenia 4. Tobacco dependence PLAN -Admitted to the inpatient general medical service. -recieved lovenox and bridge with couamdin. h/o xarelto use in past had to be taken off 2/2 side effects. see if can be switched to eliquis, needs lifelong, monitor INR -vascular surgery consulted and recommend oral a/c no acute intervention. -recommend outpatient hematology follow-up for further workup given his unprovoked recurrent DVT and significant family history of DVT in 2 family members. -consult case managment for eliquis. (if covered with insurance) -smoking cessation counselling. -patient education and encourage complaince -d/c soon, patient vital stable.
[2016-09-20 14:24] VITALS: BP 120/84
[2016-09-20] MEDS ORDERED: ELIQUIS5 M2 PO (14:49)
[2016-09-20] MEDS ORDERED: PERCOCET 5-3251 EACH PO (14:49)
--- NOTE | 2016-09-20 15:01 | Patient Discharge Instructions ---
Discharge Instructions General Discharge Information You were seen/treated for: DVT/PE Special Instructions: PLEASE START TAKING ELIQUIS FROM TONIGHT PLEASE SEEK IMMEDIATE MEDICAL ATTENTION IF YOU DEVELOP INCREASED SHORTNESS OF BREATH OR CHEST PAIN PLEASE FOLLOW UP WITH DR DEXTER IN 1 WEEK PLEASE FOLLOW UP WITH YOUR PRIMARY CARE WITHIN 1 WEEK YOU HAVE BEEN PROVIDED A REFERRAL WITH A TECHNICAL ARCHITECT, PLEASE FOLLOW UP WITHIN 1 WEEK Acute Coronary Syndrome Inclusion Criteria At DC or during hospital stay patient has or had the following: ACS DIAGNOSIS No Discharge Core Measures Meds if any: Prescribed or Continued at Discharge Meds if any: NOT Prescribed or Continued at Discharge Congestive Heart Failure Inclusion Criteria At DC or during hospital stay patient has or had the following: CHF DIAGNOSIS No Discharge Core Measures Meds if any: Prescribed or Continued at Discharge Meds if any: NOT Prescribed or Continued at Discharge Cerebrovascular accident Inclusion Criteria At DC or during hospital stay patient has or had the following: CVA/TIA Diagnosis No Discharge Core Measures Meds if any: Prescribed or Continued at Discharge Meds if any: NOT Prescribed or Continued at Discharge Venous thromboembolism Inclusion Criteria VTE Diagnosis Yes VTE Type Pulmonary Embolism VTE Confirmed by (Test) CT CHEST ANGIOGRAM Discharge Core Measures - Per Current guidelines, there needs to be overlap - treatment for the first 5 days of Warfarin therapy. - If discharged on Warfarin prior to 5 days of - overlap therapy, the patient will need to be - assessed for post discharge needs including - *Post discharge parental anticoagulation - *Warfarin and/or parental anticoagulation education - *Follow up date to check INR post discharge At least 5 days overlap therapy as Inpatient No Why was Parental Med stopped Other Anticoagulant given Meds if any: Prescribed or Continued at Discharge Warfarin No Overlap Therapy Yes (initial day) Note: Overlap Therapy is Warfarin and Anticoagulant Meds if any: NOT Prescribed or Continued at Discharge
--- NOTE | 2016-09-20 16:23 | Discharge Summary ---
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 Pt reported being off on Coumadin for about 4 months ( this was due to miscominucation as he was informed to termporary hold his coumadin due to supratheraputic INR,but he never f/u on when to restart). Physical Exam General Appearance Alert, Oriented X3, Cooperative, No Acute Distress Skin No Significant Lesion, Left calf is warm to touch, slightly erythematous relative to the right HEENT PERRLA, EOMI, Mucous Membr. moist/pink Cardiovascular Regular Rate, Normal S1, Normal S2, S4 gallop Lungs Normal Air Movement Abdomen Normal Bowel Sounds, Soft, No Tenderness Neurological Normal Speech, Normal Tone, Sensation Intact Extremities Normal Pulses, THe left calf is enlarged relative to the right, tense to palpation Vascular Pulses Symmetrical Last 24 Hrs of Labs/Vincenzo: Laboratory Tests 09/19/16 0911: Anion Gap 7, Estimated GFR > 60, BUN/Creatinine Ratio 12.5, Glucose 106 H, Calcium 9.2, Total Bilirubin 1.3, AST 20, ALT 31, Alkaline Phosphatase 89, Troponin I < 0.01, Wip-P-Yfwraqumirr Pept 48.9, Total Protein 6.9, Albumin 3.9, Globulin 3.0, Albumin/Globulin Ratio 1.3, PT 12.6 H, INR 1.20 H, APTT 29, CBC w Diff NO MAN DIFF REQ, RBC 4.95, MCV 95.0 H, MCH 32.4 H, RDW 14.5, MPV 8.4, Gran % 81.5 H, Lymphocytes % 8.1 L, Monocytes % 8.6, Eosinophils % 1.1, Basophils % 0.7, Absolute Granulocytes 10.3 H, Absolute Lymphocytes 1.0 L, Absolute Monocytes 1.1 H, Absolute Eosinophils 0.1, Absolute Basophils 0.1, PUBS MCHC 34.1 Diagnostic Data EKG Results Sinus rhythm, HR 91 BPM. OK interval 120. QTC 448 Other Results Venous Doppler ultrasound left lower extremity. Occlusive thrombus is present extending between the proximal part of the left femoral vein to the calf veins. The left common femoral vein is patent. There is a 1.6 x 0.5 x 1.3 cm popliteal fossa, Gan's cyst present. The right common femoral vein was also evaluated, and is patent. Chest CTA: 1. Abnormal CT of the chest showing evidence of bilateral lower lobar, and segmental pulmonary embolism. 2. Nonspecific subpleural linear prominent lung markings are noted at both upper lobe anteriorly, likely represent chronic changes secondary to smoking, developing nonspecific interstitial lung changes. In addition, superimposed few nonspecific patchy airspace disease is noted at right lateral costophrenic sulcus, anterior inferior aspect of the lingula and right middle lobe, likely represent hypoventilatory, atelectatic changes. Pt was started on Heparin and admitted to General medicine floor for treatment and managemnet of LLE DVT and b/l lower lobar nad segmental PE. During hospital course, pt vitals remained stable with no respiratory distress and was saturating above 92% on RA. He was then switched for heparin to Lovenox bridge and Couamdin. Once information was obtained that that patient insurance covers the Novel anticoagulation and in the setting of previous noncompliance with INR checkups it was deemed that patient will mostly benefit from not being on Coumadin. Lovenox and Coumdin was then stopped. Patient was started on Elliquis on day 2 and discharged the same day with an Rx for Elliquis 10 mg bid for 7 days and then 5mg po bid indefinitely. On discharge date, patient was very stable saturating well at room air. He was also given referral for an outpatient hematology follow-up for possible genetic workup. Allergies: Uncoded Allergies: SEASONAL ALLERGIES (Intermediate, NASAL CONGESTION 06/03/14) Disposition Summary Disposition Principal Diagnosis: Pulmonary and Deep Venous Embolism Additional Diagnosis: .. Discharge Disposition: home or self care Discharge Instructions General Discharge Information Code Status: Full Code Patient's Diet: REGULAR Patient's Activity: TOLERATED Follow-Up Instructions/Appts: Pt is to f/u with PCP within 1 week Pt is to follow up with hematology Medications at Discharge Discharge Medications: Stop taking the following medications: Ibuprofen (Ibuprofen) 200 MG TABLET ORAL DAILY Rivaroxaban (Xarelto) 15 MG TABLET ORAL TWICE DAILY Days = 21 Acetaminophen/Hydrocodone Bi ([place] 325 MG-5 MG) 1 TAB TAB ORAL EVERY SIX HOURS NEEDED as needed for DVT Qty = 20 Start taking the following new medications: Apixaban (Eliquis) 5 MG TABLET 5 Milligram ORAL SEE INSTRUCTIONS Days = 30 No Refills Instructions: PLEASE TAKE 2 TABLETS (10MG) TWICE DAILY FOR 1 WEEK THEN 1 TABLET (5MG) TWICE DAILY INDEFINITELY Copies To: SHERWIN ORANTES DO
== END 2016-09-20 17:58 | DRG 176 ==
LOC: ENRESERVDT → ENRESERVTM → ERH 08:10 → 2NB 11:16 → ERHI 11:16 → 2NB 11:16
PROVIDERS: Emergency Medicine; Internal Medicine; Student in an Organized Health Care Education/Training Program; ADMIT Internal Medicine
DX: I26.99 Other pulmonary embolism without acute cor pulmonale (principal); D69.6 Thrombocytopenia, unspecified; I82.4Z2 Acute embolism and thrombosis of unspecified deep veins of left distal lower extremity; Z86.718 Personal history of other venous thrombosis and embolism; F17.200 Nicotine dependence, unspecified, uncomplicated
CPT/HCPCS: 2NBP; 82436; 93005; 93010; 96374; 96375; J1644; J1650; J1885

== ENCOUNTER 2016-10-19 14:46 | Inpatient (IN) | payer OTHER ==
[~2016-10-19] VITALS: Ht 170.2 cm; Wt 64.2 kg
[~2016-10-19 14:46] MED LIST changes: +ELIQUIS5 M2 PO; +PERCOCET 5-3251 EACH PO
--- NOTE | 2016-10-19 15:16 | NUR ---
PT WAS SENT IN BY DR. ORANTES FOR BLOOD CLOT IN HIS NECK. PT STATES HE WAS HERE LAST WEEK AND HAD BLOOD CLOT IN HIS LEGS AND LUNGS. PT IS CURRENTLY ON ELEQUIST AND IS TAKING IT PRESCRIBED
--- NOTE | 2016-10-19 15:16 | NUR ---
PT STATES HE HAD US AND WAS TOLD BY HIS TO GO TO ED FOR BLOOD CLOT IN HIS ARM
--- NOTE | 2016-10-19 15:21 | NUR ---
LABS DRAWN AND SENT BY THIS [facility] BLUE, SST, LAV X2, PAPPAS, PINK
[2016-10-19 15:32] LABS: ABSOLUTE BASOPHIL COUNT 0.1 /CUMM (0.0-0.2); ABSOLUTE EOSINOPHIL COUNT 0.4 /CUMM (0.0-0.7); ABSOLUTE GRANULOCYTE CT 5.7 /CUMM (1.4-6.5); ABSOLUTE LYMPH COUNT 1.9 /CUMM (1.2-3.4); ABSOLUTE MONOCYTE COUNT 0.8 /CUMM (0.10-0.60); BASOPHIL % 0.9 % (0.0-2.0); EOSINOPHIL % 4.9 % (0-5); GRANULOCYTE % 63.7 % (42.2-75.2); HEMATOCRIT 50.5 % (42-52); MEAN CORPUSCULAR HGB 32.3 PG (27.0-31.0); MEAN CORPUSCULAR HGB CONC 33.5 G/DL (33.0-37.0); MEAN CORPUSCULAR VOLUME 96.6 FL (80.0-94.0); MEAN PLATELET VOLUME 8.4 FL (7.4-10.4); PLATELET COUNT 167 /CUMM (130-400); RBC DISTRIBUTION WIDTH 14.5 % (11.5-14.5); RED BLOOD CELL CT 5.23 /CUMM (4.70-6.10)
[2016-10-19 15:37] LABS: PT 10.4 SEC (9.4-12.5)
--- NOTE | 2016-10-19 15:45 | NUR ---
PT IN ROOM 1
--- NOTE | 2016-10-19 15:56 | ED GENERAL ADULT ---
See Addendum History of Present Illness General Chief Complaint: General Adult Stated Complaint: PT WAS SIB DR FOR BLOOD CLOT IN HIS NECK Source: patient, family, old records Exam Limitations: no limitations Vital Signs & Intake/Output Vital Signs & Intake/Output Vital Signs Date Time Temp Pulse Resp B/P B/P Pulse O2 O2 Flow FiO2 Mean Ox Delivery Rate 10/19 1724 97.5 75 18 132/65 96 10/19 1516 97.9 84 16 108/74 94 Room Air Allergies Uncoded Allergies: SEASONAL ALLERGIES (Intermediate, NASAL CONGESTION 06/03/14) Reconcile Medications Apixaban (Eliquis) 5 MG TABLET 5 MG PO SEE ADMIN CRITERIA DVT/PE PLEASE TAKE 2 TABLETS (10MG) TWICE DAILY FOR 1 WEEK THEN 1 TABLET (5MG) TWICE DAILY INDEFINITELY Varenicline Tartrate (Chantix) 1 MG TABLET 1 TAB PO BID SMOKING CESSATION ( Reported) Triage Note: PT WAS SENT IN BY DR. WITT FOR BLOOD CLOT IN HIS NECK. PT STATES HE WAS HERE LAST WEEK AND HAD BLOOD CLOT IN HIS LEGS AND LUNGS. PT IS CURRENTLY ON ELEQUIST AND IS TAKING IT PRESCRIBED Triage Nurses Notes Reviewed? yes HPI: This is a 56-year-old male with past medical history significant multiple DVT and bilateral subsegmental PE less admitted to [facility] on 09/19/2016 for DVT and bilat PE. He was discharged the next day on Eliquis. Patient was following up with his PCP Dr. Witt today when he mentioned right upper extremity swelling. He was referred for an upper extremity ultrasound which was then positive for a thrombus in the subclavian vein. Pt referred to come to [place] ED. Upon further speaking to the patient, he says this past Tuesday he was laying on his right side for 20 minutes while doing his routine work and when he resumed his regular standing position he noted some swelling and erythema in his entire right upper extremity. He states that the swelling never subsided and in fact seemed to be slightly worsening. He noticed some discoloration and erythema in that arm. He noted that he cannot flex his right arm as much as his left arm due to swelling. He expressly insists that he has been compliant with his Eliquis. He denies any headache, loss of vision, slurring of speech, unilateral weakness, dysarthria or loss of consciousness. He does endorse some worsening shortness of breath in the past 2 weeks. Denies any chest pain, GI or symptoms. Denies lower extremity weakness. Note the patient has strong family history for coagulopathy. Mother had history of DVT and so does his brother. Patient was evaluated by Dr. Domenic Owusu recently for work up of coagulopathy, he states that he had a follow-up appointment this Tuesday. Pt does have strong smoking hx but now attempting to quit on [place]. He smokes 4-6 cigarettes a day. (KO OLSEN,SHAMAR) Onset: Gradual Duration: week(s): (1) Timing: recent history Injury Environment: home Severity: moderate, severe No Modifying Factors: none Associated Symptoms: SWELLING, PROMINENT VEINS (CARMEL OLSEN,RAHEEL) Past History Travel History Traveled to [place] past 21 day No Medical History Any Pertinent Medical History? see below for history Neurological: NONE EENT: TMJ Cardiovascular: history of dvt, PE Respiratory: NONE Gastrointestinal: NONE Hepatic: NONE Renal: NONE Musculoskeletal: FX ARM AND LEG TMJ Psychiatric: NONE Endocrine: NONE Blood Disorders: DVT Cancer(s): NONE CHECKER LOADER/Reproductive: NONE History of MRSA: No History of VRE: No History of CDIFF: No Surgical History Surgical History: RIGHT KNEE LIGAMENT REPAIR Psychosocial History Who do you live with Friend Services at Home None What is your primary language Irish Tobacco Use: Quit >30 days ago ETOH Use: heavy use Illicit Drug Use: denies illicit drug use Family History Comment: DVT in both mother and brother Hx Contributory? Yes (KO OLSEN,SHAMAR) Review of Systems Review of Systems Constitutional: Denies: chills, diaphoresis, fever, malaise, weakness. EENTM: Reports: no symptoms, see HPI, eye pain, eye drainage, eye tearing, icterus, ear discharge, ear pain, ear redness, hearing changes, nasal congestion, epistaxis, nasal pain, throat pain, throat swelling, mouth pain, tooth pain. Denies: blurred vision, double vision, visual changes. Respiratory: Reports: short of breath. Denies: cough, orthopnea, sputum production, stridor. Cardiovascular: Denies: chest pain, palpitations, peripheral edema. GI: Denies: abdominal pain, constipation, diarrhea. Genitourinary: Reports: no symptoms. Musculoskeletal: Reports: muscle stiffness. Skin: Reports: change in skin color, erythema. (SHAMAR CONNELL MD) Review of Systems Hematologic/Endocrine: Denies: bruising, bleeding, polyuria, polydipsia. Immunologic/Allergic: Denies: splenectomy. (RAHEEL BURT MD) Physical Exam Physical Exam General Appearance: well developed/nourished, no apparent distress, alert, awake , comfortable Head: atraumatic, some slight droop in r. eye, R. face swollen when compared to left Eyes: Bilateral: PERRL, EOMI. Ears, Nose, Throat: normal pharynx, normal ENT inspection Neck: trachea mid line, His RUE and shoulder are more swollen than left. The veins on his right shoulder and pectoralis stand out in kam contrast when compared to the left. He is unable to flex his right elbow to the same extent as his left due to overall swelling of that extremity. Pulses palpable bilat. Respiratory: chest non-tender, no respiratory distress, quiet respiration, lungs clear Cardiovascular: regular rate/rhythm Gastrointestinal: soft, non-tender Extremities: + Homans sign on LLE. No swelling or erythema noted Core Measures ACS in differential dx? No CVA/TIA Diagnosis: No Severe Sepsis Present: No Septic Shock Present: No (SHAMAR CONNELL MD) Physical Exam Peripheral Pulses: 2+ radial (R), 2+ radial (L), 2+ dorsalis pedis (R), 2+ dorsalis pedis (L) Back: normal inspection, normal range of motion Neurologic/Psych: no motor/sensory deficits, awake, alert, oriented x 3 Skin: intact, normal color, warm/dry (RAHEEL BURT MD) Progress Differential Diagnoses I considered the following diagnoses in my evaluation of the patient: [DVT, PE, svc syndrome] Plan of Care: Orders Procedure Date/time Status Regular Diet 10/19 D Active EKG 10/19 1724 Active Patient Data 10/19 1706 Active Admit to inpatient 10/19 1702 Active Vital Signs 10/19 1702 Active Code Status 10/19 1702 Active ETHANOL 10/19 1519 Complete PROTHROMBIN TIME 10/19 151 Complete COMPREHENSIVE METABOLIC PANEL 10/19 1516 Complete CBC WITHOUT DIFFERENTIAL 10/19 1516 Complete Current Medications Sig/Amaya Start time Last Medication Dose Stop Time Status Admin Heparin Sodium 25,000 UNIT Q24H 10/19 1615 AC 10/19 (Porcine) 1707 (Heparin) Sodium Chloride 500 ML Laboratory Tests 10/19/16 1519: Anion Gap 10, Estimated GFR > 60, BUN/Creatinine Ratio 13.3, Glucose 86, Calcium 9.0, Total Bilirubin 0.7, AST 25, ALT 51, Alkaline Phosphatase 82, Total Protein 7.1, Albumin 4.3, Globulin 2.8, Albumin/Globulin Ratio 1.5, PT 10.4, INR 0.99, CBC w Diff NO MAN DIFF REQ, RBC 5.23, MCV 96.6 H, MCH 32.3 H, RDW 14.5, MPV 8.4, Gran % 63.7, Lymphocytes % 21.3, Monocytes % 9.2, Eosinophils % 4.9, Basophils % 0.9, Absolute Granulocytes 5.7, Absolute Lymphocytes 1.9, Absolute Monocytes 0.8 H, Absolute Eosinophils 0.4, Absolute Basophils 0.1, PUBS MCHC 33.5, Serum Alcohol 135.0 10/19/16 1518: Serum Alcohol Cancelled Initial ED EKG: normal axis Comments: 4:30- Pt labs evaluated. His US + for Subclavian thrombus while on Eliquis. Started on Heparin. Pending bilat LE dopplers. Note pt has serum alcohol 135 and he denied any etoh use to me 5:30 PM- Spoke with Dr. Apodaca vascular surgeon promotion manager regarding pt's diagnosis. He stated that a commercial solar sales consultant would come in tomorrow and evaluate patien for possible tpa. (KO OLSEN,SHAMAR) Differential Diagnoses I considered the following diagnoses in my evaluation of the patient: Diagnostic Imaging: Viewed by Me: Ultrasound. Discussed w/RAD: Ultrasound. Radiology Impression: PATIENT: ADRIANA BREWER PRESENT AGE: 56 PATIENT ACCOUNT NO: [id number] : 58 LOCATION: [facility] ORDERING PHYSICIAN: SHAMAR CONNELL MD SERVICE DATE: 10/19/16 EXAM TYPE: US - US-EXT BILAT VENOUS DOPPLER EXAMINATION: US TRIPLEX OF LOWER EXTREMITIES, BILATERAL CLINICAL INFORMATION: Patient with known subclavian deep vein thrombosis has positive Homans sign. Evaluate lower extremity venous thrombosis. COMPARISON: Chest CT angiography for positive pulmonary emboli on . Lower extremity venous ultrasound of 09/19/2016 demonstrating deep vein thrombosis of left femoral and calf veins. TECHNIQUE: Color-flow triplex imaging with spectral analysis and compression Doppler were performed on the lower extremities. FINDINGS: RIGHT: Common femoral vein is compressible and exhibits a normal phasic waveform; this suggests that the iliac veins are widely patent above. Within the proximal thigh, the visualized profunda femoris vein is patent and the examined greater saphenous vein and saphenofemoral junction are normal. The superficial femoral vein is patent in the proximal, mid and distal thigh. The popliteal vein is patent to the level of the trifurcation and the visualized calf veins are normal. No evidence of Gan's cyst. LEFT: Common femoral vein is compressible and exhibits a normal phasic waveform. Within the proximal thigh, the visualized profunda femoris vein is patent and the examined greater saphenous vein and saphenofemoral junction are normal. Occlusive and nonocclusive thrombus is present within the left femoral vein of the proximal, mid and distal thigh. Interval development of some flow around the partially occlusive popliteal vein thrombus. Thrombosis is no longer identified within left calf veins. No evidence of Gan's cyst. IMPRESSION: 1. No evidence of deep vein thrombosis in the right lower extremity. 2. Compared to 09/19/2016, there has been some interval improvement in the deep vein thrombosis. Left calf vein thrombosis is no longer identified. Some of the femoral and popliteal vein thrombosis is partially recanalized. No new thrombus is identified. DICTATED BY: CHARMAINE HERNANDEZ MD DATE/TIME DICTATED:10/19/161710 SPRING INSPECTOR:BREANNE DATE/TIME TRANSCRIBED:10/19/161710 CONFIDENTIAL, DO NOT COPY WITHOUT APPROPRIATE AUTHORIZATION. <Electronically signed in Other Vendor System> SIGNED BY: CHARMAINE HERNANDEZ MD 10/19/16 1720 (RAHEEL BURT MD) Departure Departure Condition: Stable Referrals: SHERWIN WITT DO (PCP/Family) Departure Forms: Customer Survey General Discharge Information Admission Note Spoke With: BRIAN PRESCOTT MD Documentation of Exam: Documentation of any treatments & extenuating circumstances including Concerns Regarding Discharge (functional status, medication knowledge or non-compliance, living conditions, etc.) that warrant an admission rather than observation: [ Subclavian Clot with failure on Eliquis. Requires heparin, vascular consult nad heme work up] (SHAMAR CONNELL MD) Departure Time of Disposition: 170 Disposition: STILL A PATIENT Clinical Impression Primary Impression: Subclavian vein thrombosis Admission Note Spoke With: BRIAN PRESCOTT MD Documentation of Exam: Documentation of any treatments & extenuating circumstances including Concerns Regarding Discharge (functional status, medication knowledge or non-compliance, living conditions, etc.) that warrant an admission rather than observation: [ VASCULAR CONSULTATION (DR APODACA CONSULTED, POSSIBLE TPA DECISION WILL BE MADE TOMORROW. CURRENTLY HEMODYNAMICALLY STABLE)] Resident Co-Sign Statement Statement: ED Attending supervision documentation- [X] I saw and evaluated the patient. I have also reviewed all the pertinent lab results and diagnostic results. I agree with the findings and the plan of care as documented in the Resident's documentation. [X] I have reviewed the ED Record and agree with the Resident's documentation. [] Additions or exceptions (if any) to the Resident's note and plan are summarized below: [] (CARMEL OLSEN,RAHEEL) Critical Care Note Critical Care Note Critical Care Time: non-applicable (KO OLSEN,SHAMAR)
[2016-10-19] MEDS ORDERED: CHANTIX1 MG PO (16:04)
--- NOTE | 2016-10-19 16:37 | NUR ---
PT SENT TO ULTRASOUND
--- NOTE | 2016-10-19 17:04 | NUR ---
RETURNED FROM ULTRASOUND
--- NOTE | 2016-10-19 17:07 | NUR ---
HEPARIN GTT STARTED
--- NOTE | 2016-10-19 17:20 | ULTRASOUND REPORT ---
EXAMINATION: US TRIPLEX OF LOWER EXTREMITIES, BILATERAL CLINICAL INFORMATION: Patient with known subclavian deep vein thrombosis has positive Homans sign. Evaluate lower extremity venous thrombosis. COMPARISON: Chest CT angiography for positive pulmonary emboli on 09/19/2016. Lower extremity venous ultrasound of 09/19/2016 demonstrating deep vein thrombosis of left femoral and calf veins. TECHNIQUE: Color-flow triplex imaging with spectral analysis and compression Doppler were performed on the lower extremities. FINDINGS: RIGHT: Common femoral vein is compressible and exhibits a normal phasic waveform; this suggests that the iliac veins are widely patent above. Within the proximal thigh, the visualized profunda femoris vein is patent and the examined greater saphenous vein and saphenofemoral junction are normal. The superficial femoral vein is patent in the proximal, mid and distal thigh. The popliteal vein is patent to the level of the trifurcation and the visualized calf veins are normal. No evidence of Gan's cyst. LEFT: Common femoral vein is compressible and exhibits a normal phasic waveform. Within the proximal thigh, the visualized profunda femoris vein is patent and the examined greater saphenous vein and saphenofemoral junction are normal. Occlusive and nonocclusive thrombus is present within the left femoral vein of the proximal, mid and distal thigh. Interval development of some flow around the partially occlusive popliteal vein thrombus. Thrombosis is no longer identified within left calf veins. No evidence of Gan's cyst. IMPRESSION: 1. No evidence of deep vein thrombosis in the right lower extremity. 2. Compared to 09/19/2016, there has been some interval improvement in the deep vein thrombosis. Left calf vein thrombosis is no longer identified. Some of the femoral and popliteal vein thrombosis is partially recanalized. No new thrombus is identified.
--- NOTE | 2016-10-19 17:33 | History & Physical ---
[facility] 10/19/16 1726: General Information and HPI MD Statement: I have seen and personally examined ADRIANA BREWER and documented this H& P. The patient is a 56 year old M who presented with a patient stated chief complaint of [sent in by PCP for clot]. Source of Information: patient Exam Limitations: no limitations History of Present Illness: 56-year-old male with PMH significant for multiple DVT and bilateral subsegmental PE, RLE DVT in May 2014 (managed on Xarelto but switched to warfarin in September 2014 due to side effects, took it until May 2016), last admitted to [facility] on 09/19/2016 for DVT and bilat PE, discharged the next day on Eliquis, tobacco dependence, was sent in by PCP for thrombus in the subclavian vein. Patient was following up with his PCP Dr. Witt on day of admission when he mentioned right upper extremity swelling. He was referred for an upper extremity ultrasound which was then positive for a thrombus in the subclavian vein. Pt referred to come to [place] ED. This past Tuesday, he was laying on his right side for 20 minutes while doing his routine work and when he resumed his regular standing position he noted some swelling and erythema in his entire right upper extremity. He states that the swelling never subsided and in fact seemed to be slightly worsening. He noticed some discoloration and erythema in that arm. He noted that he cannot flex his right arm as much as his left arm due to swelling. He insists that he has been compliant with his Eliquis. He denies any headache, loss of vision, slurring of speech, unilateral weakness, dysarthria or loss of consciousness. He does endorse some worsening shortness of breath in the past 2 weeks. Denies any chest pain, GI or symptoms. Denies lower extremity weakness. Note the patient has strong family history for coagulopathy. Mother had history of DVT and so does his brother. Patient was evaluated by Dr. Domenic Owusu recently for work up of coagulopathy, he states that he had a follow-up appointment this Tuesday (10/22/16). Pt does have strong smoking hx but now attempting to quit on Chantix. He smokes a couple cigarettes a day. He drinks alcohol almost daily; a shot and a beer; last drink just prior to coming to the ED. 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 Home Who Do You Live With? spouse Services at Home: None Primary Language: Chinese Smoking Status: Current Everyday Smoker ETOH Use: daily use Illicit Drug Use: denies illicit drug use Functional Ability ADLs Independent: dressing, eating, toileting, bathing. Ambulation: independent IADLs Independent: shopping, housework, finances, food prep, telephone, transportation , medication admin. 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 EENTM: Denies: visual changes. Cardiovascular: Denies: chest pain. Respiratory: Reports: short of breath (on exertion ). Denies: cough, sputum production. GI: Denies: abdominal pain. Genitourinary: Denies: dysuria. Exam & Diagnostic Data Last 24 Hrs of Vital Signs/I&O Vital Signs Date Time Temp Pulse Resp B/P B/P Pulse O2 O2 Flow FiO2 Mean Ox Delivery Rate 10/19 1724 97.5 75 18 132/65 96 10/19 1516 97.9 84 16 108/74 94 Room Air Intake & Output 10/19 1600 10/19 0800 10/19 0000 Intake Total Output Total Balance Patient 69.4 kg Weight Weight Reported by Patient Measurement Method Physical Exam General Appearance Alert, Oriented X3, Cooperative, No Acute Distress Skin face and face erythematous, right upper extremity erythematous slightly bigger than left upper extremity range of motion not limited noticed bulging veins on right upper ext HEENT Atraumatic, PERRLA, EOMI, Mucous Membr. moist/pink Cardiovascular Regular Rate, Normal S1, Normal S2, No Murmurs Lungs Clear to Auscultation, Normal Air Movement Abdomen Normal Bowel Sounds, Soft, No Tenderness Extremities No Edema, Normal Pulses Last 24 Hrs of Labs/Vincenzo: Laboratory Tests 10/19/16 1519: Anion Gap 10, Estimated GFR > 60, BUN/Creatinine Ratio 13.3, Glucose 86, Calcium 9.0, Total Bilirubin 0.7, AST 25, ALT 51, Alkaline Phosphatase 82, Total Protein 7.1, Albumin 4.3, Globulin 2.8, Albumin/Globulin Ratio 1.5, PT 10.4, INR 0.99, CBC w Diff NO MAN DIFF REQ, RBC 5.23, MCV 96.6 H, MCH 32.3 H, RDW 14.5, MPV 8.4, Gran % 63.7, Lymphocytes % 21.3, Monocytes % 9.2, Eosinophils % 4.9, Basophils % 0.9, Absolute Granulocytes 5.7, Absolute Lymphocytes 1.9, Absolute Monocytes 0.8 H, Absolute Eosinophils 0.4, Absolute Basophils 0.1, PUBS MCHC 33.5, Serum Alcohol 135.0 10/19/16 1518: Serum Alcohol Cancelled Diagnostic Data Other Results EXAMINATION: US TRIPLEX OF LOWER EXTREMITIES, BILATERAL CLINICAL INFORMATION: Patient with known subclavian deep vein thrombosis has positive Homans sign. Evaluate lower extremity venous thrombosis. COMPARISON: Chest CT angiography for positive pulmonary emboli on 09/19/2016. Lower extremity venous ultrasound of 09/19/2016 demonstrating deep vein thrombosis of left femoral and calf veins. TECHNIQUE: Color-flow triplex imaging with spectral analysis and compression Doppler were performed on the lower extremities. FINDINGS: RIGHT: Common femoral vein is compressible and exhibits a normal phasic waveform; this suggests that the iliac veins are widely patent above. Within the proximal thigh, the visualized profunda femoris vein is patent and the examined greater saphenous vein and saphenofemoral junction are normal. The superficial femoral vein is patent in the proximal, mid and distal thigh. The popliteal vein is patent to the level of the trifurcation and the visualized calf veins are normal. No evidence of Gan's cyst. LEFT: Common femoral vein is compressible and exhibits a normal phasic waveform. Within the proximal thigh, the visualized profunda femoris vein is patent and the examined greater saphenous vein and saphenofemoral junction are normal. Occlusive and nonocclusive thrombus is present within the left femoral vein of the proximal, mid and distal thigh. Interval development of some flow around the partially occlusive popliteal vein thrombus. Thrombosis is no longer identified within left calf veins. No evidence of Gan's cyst. IMPRESSION: 1. No evidence of deep vein thrombosis in the right lower extremity. 2. Compared to 09/19/2016, there has been some interval improvement in the deep vein thrombosis. Left calf vein thrombosis is no longer identified. Some of the femoral and popliteal vein thrombosis is partially recanalized. No new thrombus is identified. Echo October 2016: Normal left and right ventricular systolic function. No PFO identified on this study. No Pulmonary hypertension. Assessment/Plan Assessment: 56-year-old male with PMH significant for multiple DVT and bilateral subsegmental PE, RLE DVT in May 2014 (managed on Xarelto but switched to warfarin in September 2014 due to side effects, took it until May 2016), last admitted to [facility] on 09/19/2016 for DVT and bilat PE, discharged the next day on Eliquis, tobacco dependence, was sent in by PCP for thrombus in the subclavian vein, found on US for right upper extremity swelling, despite being on eliquis. # Subclavian vein thrombus * Started on heparin drip * Hematology consult with Dr. Owusu for am * Vascular surgery to see pt in am (called by ED) * Consider IVC filter # Tobacco dependence * Nicotine patch Diet: regular DVT ppx: mech and pharm FULL CODE As Ranked By This Provider Problem List: 1. Subclavian vein thrombosis Core Measures/Miscellaneous Acute Coronary Syndrome ACS Diagnosis: No Cerebrovascular Accident CVA/TIA Diagnosis: No Congestive Heart Failure CHF Diagnosis: No Venous Thromboembolism VTE Risk Factors: Age > 40, Previous VTE No Mech VTE prophylaxis d/t: No contraindications No VTE Pharm Prophylaxis d/t: No contraindications VTE Diagnosis: Yes VTE Type: Deep Venous Thrombosis VTE Confirmed by (Test): EXT BILATERAL VENOUS DOPP (Outpatient right upper ext US) Severe Sepsis Severe Sepsis Present: No Septic Shock Septic Shock Present: No Miscellaneous Documentation Attending Case Discussed With: BRIAN PRESCOTT MD Primary Care Physician: SHERWIN WITT DO Patient sees these Specialists Dr. Owusu Level of Patient Care: General Medicine Consults Needed: Consulting Specialty: Hematology/Oncology Consulting Physician: Dr. Francoise Jefferson Reason for Consult: DVT, eliquis failure MADELEINE ALBERTO 10/19/16 1743: General Information and HPI Allergies/Medications Home Med list Enoxaparin Sodium (Lovenox) 40 MG/0.4 ML SYRINGE 100 MG SC DAILY DVT Stop lovenox once INR is more than 2 Varenicline Tartrate (Chantix) 1 MG TABLET 1 TAB PO BID SMOKING CESSATION ( Reported) Warfarin Sodium (Coumadin) 7.5 MG TABLET 1 TAB PO DAILY DVT Follow up INR with Dr. Owusu Resident Review Statement Other Findings: Mr. Brewer is a 56 y.o. 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, with significant family h/o DVT ( mother and brother) with previous history of unprovoked right lower extremity DVT in 2013, was treated with xorelto for 2 months and then switched to warfarin secondary intolerance flu like symptoms. He did not have any prolonged period of immobility, surgery, travels, or illness, therefore this DVT was thought ot be unprovoked and he was then started on coumadin due to intolerance to xorelto and he was stable on warfarin.Apparently he was being monitored with intermittent lower extremity ultrasound by Dr. Montague since september 2014 ,took it for couple years then loss to follow up for few months after that,not taking coumadin due to some miscommunication and subsequently presented 09/18/2016 with left calf pain with swelling and redness, was found to have occlusive thrombus at proximal thigh and b/l lower lobe and subsegmental PE, was placed on iv heparin and then and discharged on Eliquis wiht plan to follow up with Dr jefferson as OP for hypercoagulability work up. 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 He states that the swelling never subsided and in fact seemed to be slightly worsening. He noticed some discoloration and erythema in that arm. He noted that he cannot flex his right arm as much as his left arm due to swelling. He endorses that he has been compliant with his Eliquis. Patient was to follow up with Dr ejfferson this Tuesday (10/22/16). vitals on admission temperature 97.5, pulse of 75, respiration of 18, blood pressure 132/65, he was 96% saturating on room air. PE :PAtient lying comfortably in bed, face noted to be felicita, erythematous neck ( patient unsure of new or baseline), right upper extremity slightly more swollen then left. CVS : s1,s2 present RS : , no adventitious sound. PA : soft, nontender b/l lower extremity pulses palpable, no edema, cyanosis, clubbing Neuro : nonfocal. white Count of 9.0, H/H of 16.9/50.5, platelet of 167 (this is his baseline, patient did have low platelet count last admission, lowest 83), Chemistries essentially normal, kidney function tests normal BUN and creatinine 12/0.9, calcium normal, LFTs within normal limits. Imaging done at [facility] showed a thrombus in the let subclavian Vein. 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 Factor V leiden deficiency * Patient has had DVT twice before and b/l PE with positive family history and this time subclavian vein thrombosis. He was began worked up as OP by Dr jefferson and was found ot have abnormal protein S activity 129% ( normal is 80 to 120%), protein c and antithrombin activity were normal. 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 * Consult with vascular to further evaluate need.candidature for IVC filter * Hematology COnsult with DR jefferson * Patient has been having both arterial and venous thrombus. * patient definitely is a candidate for lifelong AC with several indicators for that male sex,unprovoked DVT, unusual site of DVT, family history,however the AC agent will need ot be determined as this seems ot be eliquis failure if patient has actually taken eliquis religiously as he claims. Problem #2 Chronic alcoholism * Ct monitoring for CIWA * PRN ativan if needed * Serum alcohol levels high,no signs/ symptoms of withdrawal. Problem #3 * Current active smoker * Has been using chantix for smoking cessation * cut down to few cigarettes form 1 PPD * ct chantix * smoking cessation couselling. Diet: regular DVT Px with iv heparin. FULL CODE BRIAN OCAMPO MD 10/19/16 2141: Attending MD Review Statement Attending Statement Attending MD Statement: examined this patient, discuss w/resident/PA/RECREATIONAL DIRECTOR, agreed w/resident/PA/RECREATIONAL DIRECTOR, reviewed EMR data (avail), reviewed images, amended to note Attending Assessment/Plan: The patient is a 56 yo male with h/o multiple DVT's and recent pulmonary embolism/RLE DVT (09/27), who was discharged on Eliquis and returns with new right upper extremity swelling and US showing DVT in right subclavian vein ( ordered by PCP as outpatient). He states he has been compliant with his Eliquis. Denies any h/o upper extremity DVT. Has had some mild exertional dyspnea, otherwise no chest pain or palpitations. Saw Dr. Owusu as outpatient recently and had blood testing and ECHO (that was normal). There is a family history of clots as noted previously. Physical Exam: VS: T 97.5, P 75, R 18, BP 132/65, PO 96% HEENT: eyes- PERRLA, EOMI ari- moist mucosa Neck: no swelling/venous prominence Chest: clear Cor: RRR, nl S1, S2 w/o murm Abd: BS+, soft, NT, - masses or HSM Ext: + swelling RUE compared to left with minimal tenderness, no erythema, pulses 2+/symmetric Neuro: non-focal Labs/Tests- as above. Impression/Plan: #Acute Right Upper Extremity DVT- in patient with h/o recent (recurrent) LE DVT and Pulmonary Embolism. Had been non-compliant with prior Coumadin therapy and states adverse reaction from Xarelto. Has been compliant with Eliquis therapy since last admission 09/27. 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 Has had some work up by Hematology as OP (Dr. Owusu). Now presenting with RUE DVT that appears unprovoked on therapy. Placed on IV heparin in ED. Plan: Admit to medical floor- IV heparin as above. Hematology and Vascular surgery consults. May consider Lovenox therapy is this is considered Eliquis failure. Elevate RUE and watch closely for any pulmonary symptoms. #Alcohol Overuse- has had drink today with + alcohol level. Plan: Agree with CIWA and prn Ativan. #Nicotine Dependence- requesting patch. Plan: Nicotine Patch.
--- NOTE | 2016-10-19 18:53 | NUR ---
PT ATE DINNER. RESTING QUIETLY
--- NOTE | 2016-10-19 19:12 | NUR ---
PT RESTING QUIETLY, NO COMPLMAINTS
--- NOTE | 2016-10-19 21:00 | NUR ---
RESTING QUIETLY WATCHING TV
--- NOTE | 2016-10-19 21:56 | Admission Certification ---
Admission Certification Certification Statement - As attending physician, I certify that at the time of - admission, based on clinical presentation, severity of - symptoms, need for further diagnostic testing and - therapeutic interventions, and risk of adverse outcomes - without in-hospital treatment, in my clinical assessment, - this patient requires an acute hospital stay for a minimum - of two nights or longer. I have also considered psychsocial - factors such as support system, advanced age, financial - issues, cognitive issues, and failed out-patient treatments, - past re-admission history, safety of patient, and lack of - compliance as applicable. Specific rationale supporting this admission is: The patient presents with acute right upper extremity DVT on Eliquis therapy (? failure). Probable hypercoagulable state. Needs admission for IV heparin, Hematology and Vascular surgery consults. Close monitoring for pulmonary embolism.
--- NOTE | 2016-10-19 22:24 | NUR ---
PT AMBULATED TO BATHROOM TO VOID.
--- NOTE | 2016-10-19 23:07 | NUR ---
PTT LEVEL DRAWN
[2016-10-19 23:29] LABS: PTT 108 SEC (25-37)
--- NOTE | 2016-10-19 23:45 | NUR ---
PT BROUGHT TO ROOM 19. REPORT GIVEN TO CACHORRO Barrera RN. HEPARIN GTT PUT ON HOLD FOR 1 HOUR. CACHORRO AWARE GTT NEEDS TO BE LOWERED AND RESTARTED IN 1 HOUR
--- NOTE | 2016-10-19 23:45 | NUR ---
CRITICAL TEST RESULTS [id number] ADRIANA BREWER W 56 M TESTS AND RESULTS: PTT 108 Results received and read back by: RADHA MATT Results received date and time: 10/20/16 0210 The following provider was notified of the results, and read the results back: NO PROVIDER NOTIFIED PER PROTOCOL Notified date and time: 10/20/16 at 10/19/16 AT 234
[2016-10-20] VITALS (10 sets, daily range): BP systolic 121–172; BP diastolic 65–90
--- NOTE | 2016-10-20 02:08 | NUR ---
DRIP RESTARTED AT 0045 AT 22.1 PER HEPARIN DRIP PROTOCOL. PT ASLEEP WITHOUT S/S OF WITHDRAWAL.
--- NOTE | 2016-10-20 04:15 | NUR ---
PT AWAKE AND ALERT FOR VITALS, DENIES TREMORS , AND NO VISIBLE TREMORS NOTED. PT DENIES HISTORY OF WITHDRAWAL SEIZURES AND STATES THAT " I ONLY DRINK A SHOT AND A BEER DAILY". IV HEPARIN CONTINUES TO INFUSE AT THIS TIME. HEPARIN INFUSING AT 22.1ML/HR AT THIS TIME. PT AWARE HE IS TO HAVE REPEAT BLOOD WORK AT 0645.
--- NOTE | 2016-10-20 06:18 | NUR ---
PT AWAKE AND ALERT FOR VITALS AT THIS TIME, CIWA O , NO VISIBLE TREMORS NOTED AND PT DENIES TREMORS. HEPARIN DRIP CONTINUES TO INFUSE AT 22.1ML/HR, REPEAT PTT DUE AT 0645. NSR ON MONITOR HR 60-68
--- NOTE | 2016-10-20 06:36 | PN- Housestaff ---
SAPPHIRE OLSEN,ELIO 10/20/16 0636: Subjective Follow-up For: recurrent dvt Subjective: Pt seen today, feels the same as yesterday. Spoke to him at length regarding getting his kids tested for factor V leiden mutation as he was found to be heterozygous. Pt understands that he needs to be placed back on coumadin and is agreeable to follow up with Dr. Owusu for INR checks. Review of Systems Constitutional: Reports: see HPI. Objective Last 24 Hrs of Vital Signs/I&O Vital Signs Date Time Temp Pulse Resp B/P B/P Pulse O2 O2 Flow FiO2 Mean Ox Delivery Rate 10/20 1038 97.0 72 16 142/74 96 Room Air 10/20 1037 97.0 72 16 142/74 / 0931 97.0 60 18 157/86 96 Room Air 10/20 0930 97.0 58 16 157/86 / 0805 97.3 72 16 133/78 96 Room Air 10/20 0804 97.3 72 16 133/78 / 0634 97.0 60 16 172/76 96 Room Air 10/20 0618 97.0 60 16 172/76 97 Room Air / 0617 97.0 60 16 172/76 05/10 0524 96.9 68 16 121/65 05/10 0417 97.1 80 18 150/90 98 Room Air 10/20 0411 97.1 80 18 150/90 05/10 0000 98.4 73 20 136/69 05/09 2321 98.4 73 20 136/69 94 Room Air 10/19 1941 96.9 78 18 116/69 94 Room Air 10/19 1724 97.5 75 18 132/65 96 10/19 1600 Room Air 10/19 1516 97.9 84 16 108/74 94 Room Air Intake & Output 10/20 1600 10/20 0800 05/10 0000 Intake Total 120 400 Output Total 1 Balance 119 400 Intake, Oral 120 400 Output, Urine 1 Physical Exam General Appearance: Alert, Oriented X3, Cooperative, No Acute Distress Cardiovascular: Regular Rate, Normal S1, Normal S2 Lungs: Clear to Auscultation, Normal Air Movement Abdomen: Normal Bowel Sounds, Soft, No Tenderness Extremities: RUQ looks the same as on admission. slightly edematous, erythematous, with bulging veins. , ROM intact Vascular: Normal Pulses, Pulses Symmetrical Current Medications: Current Medications Sig/Amaya Start time Last Medication Dose Route Stop Time Status Admin Heparin Sodium 0 .STK-MED ONE 10/19 1622 DC (Porcine) .ROUTE Heparin Sodium 25,000 UNIT Q24H 10/19 1615 AC 10/19 (Porcine) IV 1707 Sodium Chloride 500 ML Heparin Sodium 5,000 UNIT ONCE ONE 10/19 1615 DC 10/19 (Porcine) IV 10/19 1616 1707 Lorazepam See Dose Q1P PRN 10/20 0630 AC Insts (1) IV Lorazepam 0 Q1P PRN 10/19 2345 AC IV Nicotine 7 MG DAILY 10/20 1000 AC 10/20 TOP 1023 Varenicline 1 MG BID 10/19 2200 AC 10/20 PO 102 Warfarin Sodium 5 MG ONCE ONE 10/20 0900 DC 10/20 PO 10/20 0901 0922 Dose Instructions: (1)Lorazepam: See admin criteria Last 24 Hrs of Lab/Vincenzo Results Last 24 Hrs of Labs/Mics: Laboratory Tests 10/20/16 1252: APTT 51 H 10/20/16 0643: APTT > 120 *H 10/19/16 2300: APTT 108 *H 10/19/16 1519: Anion Gap 10, Estimated GFR > 60, BUN/Creatinine Ratio 13.3, Glucose 86, Calcium 9.0, Total Bilirubin 0.7, AST 25, ALT 51, Alkaline Phosphatase 82, Total Protein 7.1, Albumin 4.3, Globulin 2.8, Albumin/Globulin Ratio 1.5, PT 10.4, INR 0.99, CBC w Diff NO MAN DIFF REQ, RBC 5.23, MCV 96.6 H, MCH 32.3 H, RDW 14.5, MPV 8.4, Gran % 63.7, Lymphocytes % 21.3, Monocytes % 9.2, Eosinophils % 4.9, Basophils % 0.9, Absolute Granulocytes 5.7, Absolute Lymphocytes 1.9, Absolute Monocytes 0.8 H, Absolute Eosinophils 0.4, Absolute Basophils 0.1, PUBS MCHC 33.5, Serum Alcohol 135.0 10/19/16 1518: Serum Alcohol Cancelled Assessment/Plan Assessment: 56-year-old male with PMH significant for multiple DVT and bilateral subsegmental PE, RLE DVT in May 2014 (managed on Xarelto but switched to warfarin in September 2014 due to side effects, took it until May 2016), last admitted to [facility] on 09/19/2016 for DVT and bilat PE, discharged the next day on Eliquis, tobacco dependence, was sent in by PCP for thrombus in the subclavian vein, found on US for right upper extremity swelling, despite being on eliquis. # Subclavian vein thrombus, factor V leiden heterozygosity * Continue heparin drip, until INR therapeutic, coumadin started 10/20/16 (pt reports that he was on 7.5 to 10 mg of coumadin daily in the past) * Hematology consult with Dr. Owusu appreciated * Vascular surgery has been called by ED physician * Daily INR and coumadin dosing # Tobacco dependence * Nicotine patch # Alcohol dependence * Ativan PRN per CIWA Diet: regular DVT ppx: mech and pharm FULL CODE Problem List: 1. Factor V Leiden mutation 2. Subclavian vein thrombosis Pain Ratin Pain Location: none Pain Goal: Remain pain free Pain Plan: mild pp Tomorrow's Labs & Rationales: inr for coumadin dosing DVT/Prophylaxis: mechanical, pharmacological Consulting Request: Consulting Specialty: Hematology/Oncology Consulting Physician: Dr. Francoise Jefferson Reason for Consult: DVT, eliquis failure HAKAN DIAZ 10/20/16 1130: Attending MD Review Statement Attending Statement Attending MD Statement: examined this patient, discuss w/resident/PA/UTILITY ASSEMBLER, agreed w/resident/PA/UTILITY ASSEMBLER, discussed with family, reviewed EMR data (avail), discussed with nursing, discussed with case mgmt, reviewed images, amended to note Attending Assessment/Plan: Impression/Plan: #Acute Right Upper Extremity DVT- in patient with h/o recent (recurrent) LE DVT and Pulmonary Embolism. 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 Has had some work up by Hematology as OP (Dr. Owusu). Now presenting with RUE DVT that appears unprovoked on therapy. Hematology consulted and recommend couamdin, failure to eliquis. Admit to medical floor- IV heparin with bridge to coumadin f/u hematology Elevate RUE and watch closely for any pulmonary symptoms. #Alcohol Overuse Plan: Agree with CIWA and prn Ativan. #Nicotine Dependence- requesting patch. spoke to patient in length who agrees to plan.
--- NOTE | 2016-10-20 07:01 | NUR ---
PT PROVIDED WITH FOOD TRAY
[2016-10-20 07:12] LABS: PTT > 120 SEC (25-37)
--- NOTE | 2016-10-20 07:16 | NUR ---
CRITICAL TEST RESULTS [id number] ADRIANA BREWER W 56 M TESTS AND RESULTS: PTT GREATER THAN 120 Results received and read back by: YANELIS ZUÑIGA Results received date and time: 10/20/16 0716 The following provider was notified of the results, and read the results back: DR GARCIA Notified date and time: 10/20/16 at 0716
--- NOTE | 2016-10-20 07:20 | NUR ---
HEPARIN INFUSION STOPPED AT 0715, DUE TO PTT GREATER THAN 120.
--- NOTE | 2016-10-20 07:30 | NUR ---
HOUSE STAFF AT BEDSIDE
--- NOTE | 2016-10-20 08:03 | NUR ---
PT REAMINS AWAKE AND ALERT, R ARM ELEVATED ON PILLOWS PER ORDER, NO VISIBLE TREMORS NOTED AND PT DENIES TREMORS. CIWA 0
--- NOTE | 2016-10-20 09:28 | Cons- Hematology ---
General Information and HPI Consulting Request Date of Consult: 10/20/16 Requested By: BRAIN PRESCOTT MD Reason for Consult: Recurrent DVT Source of Information: patient, old records Exam Limitations: no limitations History of Present Illness: Mr. Mills is a 56-year-old male with recurrent DVT, PE, on apixaban, tobacco dependence, and alcohol usage who presented to the hosptial with new right subclavian vein thrombus. He has been having right arm swelling and redness for about a week. He was seen by Dr. Witt and had ultrasound done and was noted to have thrombus in the upper extremity in the subclavian vein. He does have some shortness of breath but nothing new. He has no bleeding issues. He has no other swelling. He has been taking his apixaban 5 mg BID as directed. He denies missing of any dosing. He has not had any surgery or recent immobility. He has not had any IV placement at that area. He has seen me as an outpatient and being worked up for hypercoagulable state. He was noted to be positive for heterozygous factor V Leiden. Allergies/Medications Allergies: Uncoded Allergies: SEASONAL ALLERGIES (Intermediate, NASAL CONGESTION 06/03/14) Home Med List: Apixaban (Eliquis) 5 MG TABLET 5 MG PO SEE ADMIN CRITERIA DVT/PE PLEASE TAKE 2 TABLETS (10MG) TWICE DAILY FOR 1 WEEK THEN 1 TABLET (5MG) TWICE DAILY INDEFINITELY Varenicline Tartrate (Chantix) 1 MG TABLET 1 TAB PO BID SMOKING CESSATION ( Reported) Current Medications: Current Medications Sig/Amaya Start time Last Medication Dose Route Stop Time Status Admin Heparin Sodium 0 .STK-MED ONE 10/19 1622 DC (Porcine) .ROUTE Heparin Sodium 25,000 UNIT Q24H 10/19 1615 AC 10/19 (Porcine) IV 1707 Sodium Chloride 500 ML Heparin Sodium 5,000 UNIT ONCE ONE 10/19 1615 DC 10/19 (Porcine) IV 10/19 1616 1707 Lorazepam See Dose Q1P PRN 10/20 0630 AC Insts (1) IV Lorazepam 0 Q1P PRN 10/19 2345 AC IV Nicotine 7 MG DAILY 10/20 1000 AC TOP Varenicline 1 MG BID 10/19 2200 AC 10/19 PO 2307 Warfarin Sodium 5 MG ONCE ONE 10/20 0900 DC PO 10/20 0901 Dose Instructions: (1)Lorazepam: See admin criteria Review of Systems Review of Systems Constitutional: Denies: chills, fever, weakness. Cardiovascular: Reports: chest pain. Denies: palpitations. Respiratory: Denies: short of breath. Musculoskeletal: Reports: joint swelling. Skin: Reports: erythema. Hematologic/Endocrine: Denies: bruising, bleeding. 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 Home Who Do You Live With? spouse Services at Home: None Primary Language: Dutch Smoking Status: Current Everyday Smoker ETOH Use: daily use Illicit Drug Use: denies illicit drug use Functional Ability ADLs Independent: dressing, eating, toileting, bathing. Ambulation: independent IADLs Independent: shopping, housework, finances, food prep, telephone, transportation , medication admin. 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 ) Exam & Diagnostic Data Vital Signs and I&O Vital Signs Date Time Temp Pulse Resp B/P B/P Pulse O2 O2 Flow FiO2 Mean Ox Delivery Rate 10/20 0805 97.3 72 16 133/78 96 Room Air 10/20 0804 97.3 72 16 133/78 10/20 0634 97.0 60 16 172/76 96 Room Air 10/20 0618 97.0 60 16 172/76 97 Room Air 10/20 0617 97.0 60 16 172/76 / 0524 96.9 68 16 121/65 / 0417 97.1 80 18 150/90 98 Room Air 10/20 0411 97.1 80 18 150/90 05/10 0000 98.4 73 20 136/69 05 2321 98.4 73 20 136/69 94 Room Air 10/19 1941 96.9 78 18 116/69 94 Room Air 10/19 1724 97.5 75 18 132/65 96 10/19 1600 Room Air 10/19 1516 97.9 84 16 108/74 94 Room Air Intake & Output 10/20 1600 10/20 0800 10/20 0000 Intake Total 120 400 Output Total 1 Balance 119 400 Intake, Oral 120 400 Output, Urine 1 Physical Exam General Appearance: alert, awake, comfortable Head: atraumatic, normal appearance Eyes: Bilateral: PERRL. Ears, Nose, Throat: normal pharynx Respiratory: normal breath sounds, chest non-tender, no respiratory distress Cardiovascular: regular rate/rhythm, edema Gastrointestinal: normal bowel sounds, soft, non-tender Extremities: swelling (RUE), prominent vein Neurologic/Psych: awake, alert, oriented x 3 Skin: intact, normal color Last 48 Hours of Lab Results: Laboratory Tests 10/20 10/19 10/19 0643 2300 1519 Chemistry Sodium (137 - 145 mmol/L) 139 Potassium (3.5 - 5.1 mmol/L) 4.4 Chloride (98 - 107 mmol/L) 104 Carbon Dioxide (22 - 30 mmol/L) 25 Anion Gap (5 - 16) 10 BUN (9 - 20 mg/dL) 12 Creatinine (0.7 - 1.2 mg/dL) 0.9 Estimated GFR (>60 ml/min) > 60 BUN/Creatinine Ratio (7 - 25 %) 13.3 Glucose (65 - 99 mg/dL) 86 Calcium (8.4 - 10.2 mg/dL) 9.0 Total Bilirubin (0.2 - 1.3 mg/dL) 0.7 AST (17 - 59 U/L) 25 ALT (21 - 72 U/L) 51 Alkaline Phosphatase (< 127 U/L) 82 Total Protein (6.3 - 8.2 g/dL) 7.1 Albumin (3.5 - 5.0 g/dL) 4.3 Globulin (1.9 - 4.2 gm/dL) 2.8 Albumin/Globulin Ratio (1.1 - 2.2 %) 1.5 Coagulation PT (9.4 - 12.5 SEC) 10.4 INR (0.90 - 1.17) 0.99 APTT (25 - 37 SEC) > 120 *H 108 *H Hematology CBC w Diff NO MAN DIFF REQ WBC (4.8 - 10.8 /CUMM) 9.0 RBC (4.70 - 6.10 /CUMM) 5.23 Hgb (14.0 - 18.0 G/DL) 16.9 Hct (42 - 52 %) 50.5 MCV (80.0 - 94.0 FL) 96.6 H MCH (27.0 - 31.0 PG) 32.3 H RDW (11.5 - 14.5 %) 14.5 Plt Count (130 - 400 /CUMM) 167 MPV (7.4 - 10.4 FL) 8.4 Gran % (42.2 - 75.2 %) 63.7 Lymphocytes % (20.5 - 51.1 %) 21.3 Monocytes % (1.7 - 9.3 %) 9.2 Eosinophils % (0 - 5 %) 4.9 Basophils % (0.0 - 2.0 %) 0.9 Absolute Granulocytes (1.4 - 6.5 /CUMM) 5.7 Absolute Lymphocytes (1.2 - 3.4 /CUMM) 1.9 Absolute Monocytes (0.10 - 0.60 /CUMM) 0.8 H Absolute Eosinophils (0.0 - 0.7 /CUMM) 0.4 Absolute Basophils (0.0 - 0.2 /CUMM) 0.1 PUBS MCHC (33.0 - 37.0 G/DL) 33.5 Toxicology Serum Alcohol (<10 MG/DL) 135.0 10/19 1518 Toxicology Serum Alcohol Cancelled Imaging/Other Studies: Venous doppler 10/19/2016: 1. No evidence of deep vein thrombosis in the right lower extremity. 2. Compared to 09/19/2016, there has been some interval improvement in the deep vein thrombosis. Left calf vein thrombosis is no longer identified. Some of the femoral and popliteal vein thrombosis is partially recanalized. No new thrombus is identified. Upper extremity venous doppler 10/19/2016: There is an acute thrombosis that occludes the right subclavian vein just before its confluence with the innominate vein. Assessment/Plan Assessment: Mr. Mills is a 56-year-old male with history of recurrent VTE (DVT/PE), alcohol usage, tobacco usage who presents to the hospital with new subclavian vein thrombosis. He noted RUE edema and erythema for 1 week and seen PCP for evaluation. He was noted to have new subclavian DVT while on apixaban. He has been compliant with the medications. This is concerning for failure of apixaban. DVT in the lower extremity is improving interestingly. Given the new thrombus, he should switch to warfarin. He had previous tolerated this well and had no new thrombus while on it. He should be transitioned to warfarin. He will need to be on this indifinitely as he had multiple VTE and positive for heterozygous factor V Leiden. I have discussed the need for his children to have them tested. He can be followed in my clinic or anticoagulation clinic for warfarin. Recommendations: 1. Heparin bridge to warfarin 2. Encourage alcohol cessation 3. Recommend family testing for FVL 4. Follow up in my clinic or anticoagulation clinic Problem List: 1. Subclavian vein thrombosis 2. Tobacco dependence 3. DVT (deep venous thrombosis) 4. Pulmonary embolism 5. Factor V Leiden mutation Other Findings/Comments: Please call [phone] for any questions or concerns. Consult Acknowledgment - Thank you for your consult request.
--- NOTE | 2016-10-20 09:33 | NUR ---
PT AWAKE AND ALERT, DENIES TREMORS AND NO VISIBLE TREMORS NOTED. PT MEDICATED WITH COUMADIN PER ORDER AND HEPARIN CONTINUES TO INFUSE AT THIS TIME. CIWA 0
--- NOTE | 2016-10-20 10:28 | NUR ---
PT. REQUESTING SPECIFIC DIET FOR LUNCH. CHEESEBURGER WITH LETTUCE AND TOMATO, MAC AND CHEESE, LARGE BEEF BARLEY SOUP AND DAVID CJ WITH KETCHUP AND MUSTARD ON SIDE. ORDER CALLED INTO [facility] FROM [facility] BY THIS [facility].
--- NOTE | 2016-10-20 10:34 | NUR ---
PT ALERT AND ORIENTED, NO VISIBLE TREMORS NOTED AND PT DENIES TREMORS. HEPARIN DRIP CONTINUES TO INFUSE AND NEXT PTT DUE AT 1245. NSR ON MONITOR HR 72.
--- NOTE | 2016-10-20 11:10 | NUR ---
PT AMBULATED TO BATHROOM WITH STEADY GAIT AT THIS TIME.
--- NOTE | 2016-10-20 12:59 | NUR ---
REPEAT PTT DRAWN AND SENT. PT OFFERS NO COMPLAINTS AT THIS TIME.
[2016-10-20 13:37] LABS: PTT 51 SEC (25-37)
--- NOTE | 2016-10-20 19:04 | Cons- Vascular Surgery ---
General Information and HPI Consulting Request Date of Consult: 10/20/16 Requested By: HAKAN DIAZ MD Reason for Consult: DVT Source of Information: patient, family, old records History of Present Illness: Mr. Mills is a 56-year-old male with recurrent DVT, non-compliance, PE, tobacco dependence, and alcohol usage who presented to the hosptial with new right subclavian vein thrombus. Upon direct questioning and office record review he states he is only INTERMITTENTLY compliant and often missess doses due to his late shift at work. He has not had any IV placement at that area. He has seen me as an outpatient and being worked up for hypercoagulable state. He was noted to be positive for heterozygous factor V Leiden. He is followed by Dr. Dominique. Allergies/Medications Allergies: Uncoded Allergies: SEASONAL ALLERGIES (Intermediate, NASAL CONGESTION 06/03/14) Home Med List: Apixaban (Eliquis) 5 MG TABLET 5 MG PO SEE ADMIN CRITERIA DVT/PE PLEASE TAKE 2 TABLETS (10MG) TWICE DAILY FOR 1 WEEK THEN 1 TABLET (5MG) TWICE DAILY INDEFINITELY Varenicline Tartrate (Chantix) 1 MG TABLET 1 TAB PO BID SMOKING CESSATION ( Reported) Current Medications: Current Medications Sig/Amaya Start time Last Medication Dose Route Stop Time Status Admin Heparin Sodium 25,000 UNIT Q24H 10/19 1615 AC 10/19 (Porcine) IV 1707 Sodium Chloride 500 ML Lorazepam See Dose Q1P PRN 10/20 0630 AC Insts (1) IV Lorazepam 0 Q1P PRN 10/19 2345 AC IV Nicotine 7 MG DAILY 10/20 1000 AC 10/20 TOP 1023 Varenicline 1 MG BID 10/19 2200 AC 10/20 PO 1023 Warfarin Sodium 5 MG ONCE ONE 10/20 0900 DC 10/20 PO 10/20 0901 0922 Dose Instructions: (1)Lorazepam: See admin criteria Past History Medical History Neurological: NONE, TIA EENT: TMJ Cardiovascular: history of dvt PE Respiratory: NONE Gastrointestinal: NONE Hepatic: NONE Renal: NONE Musculoskeletal: FX ARM AND LEG TMJ Psychiatric: NONE Endocrine: NONE Blood Disorders: DVT Cancer(s): NONE 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 Home Who Do You Live With? spouse Services at Home: None Primary Language: Kiswahili Smoking Status: Current Everyday Smoker ETOH Use: daily use Illicit Drug Use: denies illicit drug use Functional Ability ADLs Independent: dressing, eating, toileting, bathing. Ambulation: independent IADLs Independent: shopping, housework, finances, food prep, telephone, transportation , medication admin. 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 ) Review of Systems Review of Systems: Mild Upper arm discomfort Exam & Diagnostic Data Vital Signs and I&O Vital Signs Date Time Temp Pulse Resp B/P B/P Pulse O2 O2 Flow FiO2 Mean Ox Delivery Rate 10/20 1438 98.4 74 20 142/86 95 / 1038 97.0 72 16 142/74 96 Room Air 10/20 1037 97.0 72 16 142/74 / 0931 97.0 60 18 157/86 96 Room Air / 0930 97.0 58 16 157/86 / 0805 97.3 72 16 133/78 96 Room Air 10/20 0804 97.3 72 16 133/78 05/ 0634 97.0 60 16 172/76 96 Room Air / 0618 97.0 60 16 172/76 97 Room Air / 0617 97.0 60 16 172/76 05/ 0524 96.9 68 16 121/65 05/ 0417 97.1 80 18 150/90 98 Room Air / 0411 97.1 80 18 150/90 05/ 0000 98.4 73 20 136/69 05/09 2321 98.4 73 20 136/69 94 Room Air 10/19 1941 96.9 78 18 116/69 94 Room Air Intake & Output 10/20 1600 10/20 0800 10/20 0000 10/19 1600 10/19 0800 10/19 0000 Intake Total 256.5 120 400 Output Total 0 1 Balance 256.5 119 400 Intake, IV 16.5 Intake, Oral 240 120 400 Number 0 Bowel Movements Output, Urine 0 1 Patient 153 lb Weight Weight Reported by Patient Measurement Method Physical Exam: EXT: + radial pulse, no phelmasia, trace swelling Physical Exam General Appearance: well developed/nourished, no apparent distress, awake Extremities: normal inspection, normal capillary refill, swelling Assessment/Plan Assessment/Plan DVT R. upper extremity related to non-compliance anf hypercoaguable state 1.) Will continue A/C-either Eliquis/Coumadin--which ever pt. will comply with best 2.) No role for IVCF 3.) Hematolgy f/u 4.) Will follow as outpatient with US--if discomfort were to worsen pt. may require further intervention but is stable at this time 5.) Elevation/compression Consult Acknowledgment - Thank you for your consult request.
[2016-10-20 19:08] LABS: PTT 62 SEC (25-37)
[2016-10-21] VITALS: BP 142/90
[2016-10-21 04:00] VITALS: BP 138/84
[2016-10-21 04:01] VITALS: BP 138/84
--- NOTE | 2016-10-21 06:56 | PN- Housestaff ---
SAPPHIRE OLSEN,ELIO 10/21/16 0655: Subjective Follow-up For: dvt Subjective: pt seen today, no new complaints. reports that he did miss a few night doses of eliquis. after much thought and discussion, he has decided to go with coumadin for alf anticoagulation. will dose coumadin 10 mg today. pt used to take 7.5 to 10mg daily when he was on coumadin. his inr this am was 1.01 after having received 5 mg of coumadin yesterday. will continue heparin until inr therapeutic then pt can be discharged. Review of Systems Constitutional: Reports: see HPI. Objective Last 24 Hrs of Vital Signs/I&O Vital Signs Date Time Temp Pulse Resp B/P B/P Pulse O2 O2 Flow FiO2 Mean Ox Delivery Rate 10/21 0809 97.6 64 20 116/60 97 Room Air 10/21 0401 97.8 72 18 138/84 95 Room Air 10/21 0400 97.8 72 18 138/84 10/21 0000 98.6 72 18 142/90 10/20 2206 98.6 72 18 142/90 97 10/20 1438 98.4 74 20 142/86 95 Intake & Output 10/21 1600 10/21 0800 10/21 0000 Intake Total 252 550 Output Total Balance 252 550 Intake, IV 132 Intake, Oral 120 550 Patient 64.155 kg Weight Weight Standing Scale Measurement Method Physical Exam General Appearance: Alert, Oriented X3, Cooperative, No Acute Distress HEENT: Atraumatic Cardiovascular: Regular Rate, Normal S1, Normal S2 Lungs: Clear to Auscultation, Normal Air Movement Abdomen: Normal Bowel Sounds, Soft, No Tenderness Extremities: RUE same as yesterday Current Medications: Current Medications Sig/Amaya Start time Last Medication Dose Route Stop Time Status Admin Heparin Sodium 2,560 UNIT ONCE ONE 10/21 0845 DC 10/21 (Porcine) IV 10/21 0846 0857 Heparin Sodium 25,000 UNIT Q24H 10/19 1615 AC 10/21 (Porcine) IV 0856 Sodium Chloride 500 ML Lorazepam See Dose Q1P PRN 10/20 0630 AC Insts (1) IV Lorazepam 0 Q1P PRN 10/19 2345 AC IV Nicotine 7 MG DAILY 10/20 1000 AC 10/20 TOP 1023 Varenicline 1 MG BID 10/19 2200 AC 10/21 PO 0857 Warfarin Sodium 10 MG COUMADIN 1700 ONE 10/21 1700 AC PO 10/21 1701 Warfarin Sodium 10 MG ONCE ONE 10/21 929 DC PO 10/21 930 Dose Instructions: (1)Lorazepam: See admin criteria Last 24 Hrs of Lab/Vincenzo Results Last 24 Hrs of Labs/Mics: Laboratory Tests 10/21/16 0617: PT 10.6, INR 1.01, APTT 46 H 10/20/16 1845: APTT 62 H 10/20/16 1252: APTT 51 H Assessment/Plan Assessment: 56-year-old male with PMH significant for multiple DVT and bilateral subsegmental PE, RLE DVT in May 2014 (managed on Xarelto but switched to warfarin in September 2014 due to side effects, took it until May 2016), last admitted to [facility] on 09/19/2016 for DVT and bilat PE, discharged the next day on Eliquis, tobacco dependence, was sent in by PCP for thrombus in the subclavian vein, found on US for right upper extremity swelling, despite being on eliquis (although he did miss a few night doses of eliquis). After much thought and discussion, he has decided to go with coumadin for alf anticoagulation. He seems determined to follow up INR routinely and to continue taking his medications as directed. # Subclavian vein thrombus, factor V leiden heterozygosity * Continue heparin drip, until INR therapeutic, coumadin started 10/20/16 (pt reports that he was on 7.5 to 10 mg of coumadin daily in the past) * Hematology consult with Dr. Owusu appreciated * Vascular surgery consulted * Daily INR and coumadin dosing # Tobacco dependence * Nicotine patch # Alcohol dependence * Ativan PRN per CIWA Diet: regular DVT ppx: mech and pharm FULL CODE Problem List: 1. Factor V Leiden mutation 2. Subclavian vein thrombosis Pain Ratin Pain Location: none Pain Goal: Remain pain free Pain Plan: mild pp Tomorrow's Labs & Rationales: inr for coumadin dose DVT/Prophylaxis: mechanical, pharmacological Consulting Request: Consulting Specialty: Hematology/Oncology Consulting Physician: Dr. Francoise Jefferson Reason for Consult: DVT, eliquis failure HAKAN DIAZ 10/21/16 1043: Attending MD Review Statement Attending Statement Attending MD Statement: examined this patient, discuss w/resident/PA/STREET ENGINEER, agreed w/resident/PA/STREET ENGINEER, discussed with family, reviewed EMR data (avail), discussed with nursing, discussed with case mgmt, reviewed images, amended to note Attending Assessment/Plan: #Acute Right Upper Extremity DVT- in patient with h/o recent (recurrent) LE DVT and Pulmonary Embolism. 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 Has had some work up by Hematology as OP (Dr. Owusu). Now presenting with RUE DVT that appears unprovoked on therapy. Hematology consulted and recommend couamdin vs eliquis. (non complaint with eliquis vs ?failure of eliquis), patient agrees to coumadin. (says "I was disease free with coumadin") Admit to medical floor- IV heparin with bridge to coumadin, home dose 2 years ago 7.5-10mg. start high dose coumadin and monitor INR. #Alcohol Overuse Plan: Agree with CIWA and prn Ativan. #Nicotine Dependence- requesting patch. spoke to patient in length who agrees to coumadin for a/c in future.
[2016-10-21 08:09] VITALS: BP 116/60
[2016-10-21 08:19] LABS: PT 10.6 SEC (9.4-12.5); PTT 46 SEC (25-37)
--- NOTE | 2016-10-21 08:54 | PN- Hematology ---
Subjective Subjective: He is doing about the same today. He denies any new symptoms. This morning he revealed that he is only taking apixaban once a day. Over the last 3 weeks, he has missed a total of 1 week off and on. Review of Systems: Constitutional: Denies: chills, fever, weakness. Cardiovascular: Denies: palpitations. Respiratory: Denies: short of breath. Musculoskeletal: Reports: joint swelling. Hematologic/Endocrine: Denies: bruising, bleeding. All Other Systems: Reviewed and Negative Objective Vital Signs and I&Os Vital Signs Date Time Temp Pulse Resp B/P B/P Pulse O2 O2 Flow FiO2 Mean Ox Delivery Rate 10/21 0809 97.6 64 20 116/60 97 Room Air 10/21 0401 97.8 72 18 138/84 95 Room Air 10/21 0400 97.8 72 18 138/84 10/21 0000 98.6 72 18 142/90 10/20 2206 98.6 72 18 142/90 97 / 1438 98.4 74 20 142/86 95 10/20 1038 97.0 72 16 142/74 96 Room Air 10/20 1037 97.0 72 16 142/74 10/20 0931 97.0 60 18 157/86 96 Room Air 10/20 0930 97.0 58 16 157/86 Intake & Output 10/21 1600 10/21 0800 10/21 0000 10/20 1600 10/20 0800 10/20 0000 Intake Total 252 550 256.5 120 400 Output Total 0 1 Balance 252 550 256.5 119 400 Intake, IV 132 16.5 Intake, Oral 120 550 240 120 400 Number 0 Bowel Movements Output, Urine 0 1 Physical Exam: General Appearance: alert, awake, comfortable Head: atraumatic, normal appearance Respiratory: normal breath sounds, chest non-tender, no respiratory distress Cardiovascular: regular rate/rhythm, edema Gastrointestinal: normal bowel sounds, soft, non-tender Extremities: prominent vessels Neurologic/Psych: awake, alert, oriented x 3 Skin: intact, normal color Current Medications: Current Medications Sig/Amaya Start time Last Medication Dose Route Stop Time Status Admin Heparin Sodium 25,000 UNIT Q24H 10/19 1615 AC 10/20 (Porcine) IV 1947 Sodium Chloride 500 ML Lorazepam See Dose Q1P PRN 10/20 0630 AC Insts (1) IV Lorazepam 0 Q1P PRN 10/19 2345 AC IV Nicotine 7 MG DAILY 10/20 1000 AC 10/20 TOP 1023 Varenicline 1 MG BID 10/19 2200 AC 10/20 PO 2157 Warfarin Sodium 5 MG ONCE ONE 10/20 899 DC 10/20 PO 10/20 0901 0922 Dose Instructions: (1)Lorazepam: See admin criteria Results Last 24 Hours of Lab Results: Laboratory Tests 10/21 10/21 10/20 10/20 0645 0617 1845 1252 Coagulation PT (9.4 - 12.5 SEC) 10.6 INR (0.90 - 1.17) 1.01 APTT (25 - 37 SEC) Cancelled 46 H 62 H 51 H Assessment/Plan Assessment/Recommendations: Mr. Mills is a 56-year-old male with history of recurrent VTE (DVT/PE), alcohol usage, tobacco usage who presents to the hospital with new subclavian vein thrombosis. He noted RUE edema and erythema for 1 week and seen PCP for evaluation. He was noted to have new subclavian DVT while on apixaban. On further questioning, he has not been compliant with medications. It will be difficult to call him an apixaban failure with this new information. It would be reasonable to put him back on apixaban and follow him closely. If he is not compliant, it would be difficult to manage him on warfarin. He will need to be on anticoagulation ndifinitely as he had multiple VTE and positive for heterozygous factor V Leiden. I have discussed the need for his children to have them tested. Recommendations: 1. Warfarin or apixaban as anticoagulation, patient prefer apixaban 2. Encourage alcohol cessation 3. Recommend family testing for FVL 4. Follow closely for new DVT/PE 5. Stress compliance with medications Please call [phone] with any questions. Problem List: 1. Factor V Leiden mutation 2. Subclavian vein thrombosis 3. Tobacco abuse 4. Alcohol use
[2016-10-21 14:04] VITALS: BP 110/68
[2016-10-21 15:44] LABS: PTT 54 SEC (25-37)
[2016-10-21 21:09] LABS: PTT 58 SEC (25-37)
[2016-10-21 22:34] VITALS: BP 147/85
[2016-10-22 03:32] LABS: PTT > 120 SEC (25-37)
[2016-10-22 06:34] VITALS: BP 124/64
--- NOTE | 2016-10-22 07:02 | PN- Housestaff ---
SAPPHIRE OLSEN,ELIO 10/22/16 0702: Subjective Follow-up For: recurrent dvt Subjective: pt seen this morning, was comfortably sitting in bed eating breakfast, no complains. Review of Systems Constitutional: Reports: see HPI. Objective Last 24 Hrs of Vital Signs/I&O Vital Signs Date Time Temp Pulse Resp B/P B/P Pulse O2 O2 Flow FiO2 Mean Ox Delivery Rate 10/22 0634 98.2 76 20 124/64 97 Room Air 10/21 2234 98.0 64 20 147/85 97 Room Air 10/21 1404 98.3 72 20 110/68 95 10/21 0809 97.6 64 20 116/60 97 Room Air Intake & Output 10/22 0800 10/22 0000 10/21 1600 Intake Total 620 1000 1052.8 Output Total Balance 620 1000 1052.8 Intake, IV 140 152.8 Intake, Oral 480 1000 900 Number 0 1 Bowel Movements Patient 64.155 kg Weight Weight Standing Scale Measurement Method Physical Exam General Appearance: Alert, Oriented X3, Cooperative, No Acute Distress Cardiovascular: Regular Rate, Normal S1, Normal S2 Lungs: Clear to Auscultation, Normal Air Movement Abdomen: Normal Bowel Sounds, Soft, No Tenderness Extremities: No Edema Current Medications: Current Medications Sig/Amaya Start time Last Medication Dose Route Stop Time Status Admin Heparin Sodium 2,560 UNIT BOLUS ONE 10/21 2144 DC 10/21 (Porcine) IV 10/21 2146 2145 Heparin Sodium 5,000 UNIT .STK-MED ONE 10/21 214 DC (Porcine) IV 10/21 2141 Heparin Sodium 5,000 UNIT .STK-MED ONE 10/21 1624 DC (Porcine) IV 10/21 1625 Heparin Sodium 2,560 UNIT BOLUS ONE 10/21 1620 DC 10/21 (Porcine) IV 10/21 1621 1620 Heparin Sodium 5,000 UNIT .STK-MED ONE 10/21 0856 DC (Porcine) IV 10/21 0857 Heparin Sodium 2,560 UNIT ONCE ONE 10/21 0845 DC 10/21 (Porcine) IV 10/21 0846 0857 Heparin Sodium 25,000 UNIT Q24H 10/19 1615 AC 10/21 (Porcine) IV 2253 Sodium Chloride 500 ML Lorazepam See Dose Q1P PRN 10/20 0630 AC Insts (1) IV Lorazepam 0 Q1P PRN 10/19 2345 AC IV Nicotine 7 MG DAILY 10/20 1000 AC 10/20 TOP 1023 Varenicline 1 MG BID 10/19 2200 AC 10/21 PO 2144 Warfarin Sodium 10 MG COUMADIN 1700 ONE 10/21 1700 DC 10/21 PO 10/21 1701 1656 Warfarin Sodium 10 MG ONCE ONE 10/21 0930 DC PO 10/21 0931 Dose Instructions: (1)Lorazepam: See admin criteria Last 24 Hrs of Lab/Vincenzo Results Last 24 Hrs of Labs/Mics: Laboratory Tests 10/22/16 0635: PT Pending, INR Pending 10/22/16 0250: APTT > 120 *H 10/21/16 2030: APTT 58 H 10/21/16 1500: APTT 54 H Assessment/Plan Assessment: 56-year-old male with PMH significant for multiple DVT and bilateral subsegmental PE, RLE DVT in May 2014 (managed on Xarelto but switched to warfarin in September 2014 due to side effects, took it until May 2016), last admitted to [facility] on 09/19/2016 for DVT and bilat PE, discharged the next day on Eliquis, tobacco dependence, was sent in by PCP for thrombus in the subclavian vein, found on US for right upper extremity swelling, despite being on eliquis (although he did miss a few night doses of eliquis). 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 He seems determined to follow up INR routinely and to continue taking his medications as directed. # Subclavian vein thrombus, factor V leiden heterozygosity * Continue heparin drip (consider discharging on lovenox), until INR therapeutic , coumadin started 10/20/16 (pt reports that he was on 7.5 to 10 mg of coumadin daily in the past) * Hematology consult with Dr. Owusu appreciated * Vascular surgery consulted * Daily INR and coumadin dosing # Tobacco dependence * Nicotine patch # Alcohol dependence * Ativan PRN per CIWA Diet: regular DVT ppx: mech and pharm FULL CODE Problem List: 1. Factor V Leiden mutation Pain Ratin Pain Location: none Pain Goal: Remain pain free Pain Plan: mild pp Tomorrow's Labs & Rationales: inr for coumadin dosing DVT/Prophylaxis: mechanical, pharmacological Consulting Request: Consulting Specialty: Hematology/Oncology Consulting Physician: Dr. Francoise Jefferson Reason for Consult: DVT, eliquis failure HAKAN DIAZ 10/22/16 1341: Attending MD Review Statement Attending Statement Attending MD Statement: examined this patient, discuss w/resident/PA/ENVIRONMENTAL AIDE, agreed w/resident/PA/ENVIRONMENTAL AIDE, discussed with family, reviewed EMR data (avail), discussed with nursing, discussed with case mgmt, reviewed images, amended to note Attending Assessment/Plan: #Acute Right Upper Extremity DVT- in patient with h/o recent (recurrent) LE DVT and Pulmonary Embolism. 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 Has had some work up by Hematology as OP (Dr. Owusu). Now presenting with RUE DVT that appears unprovoked on therapy. Hematology consulted and recommend couamdin vs eliquis. (non complaint with eliquis vs ?failure of eliquis), patient agrees to coumadin. (says "I was disease free with coumadin") Admit to medical floor- IV heparin with bridge to coumadin, home dose 2 years ago 7.5-10mg. start high dose coumadin and monitor INR. #Alcohol Overuse Plan: Agree with CIWA and prn Ativan. #Nicotine Dependence- requesting patch. spoke to patient in length who agrees to coumadin for a/c in future. d/c today with lovenox teaching and coumadin o/p f/u in coumadin clinic, case management consult. f/u hematology and PCP closely for INR monitoring.
[2016-10-22 08:17] LABS: PT 11.6 SEC (9.4-12.5)
[2016-10-22] MEDS ORDERED: COUMADIN7.5 M1 PO (08:26)
--- NOTE | 2016-10-22 08:30 | Patient Discharge Instructions ---
Discharge Instructions General Discharge Information You were seen/treated for: Recurrent DVT Special Instructions: - Check your INR at [facility]. [address] [place] [address],[place] [id number] - Please call to make sure they are open during the weekend. If they are closed, you can get your INR checked on 10/25/16. - Results will be forwarded to Dr Ronny Owusu - Goal INR 2-3. Continue taking lovenox with coumadin until your INR is more than 2, then you can stop lovenox and continue coumadin. -Please follow up with PCP and vascular surgeon -Please get your family tested for factor V leiden mutation Diet Continue normal diet: Yes Activity Full Activity/No Limits: Yes Acute Coronary Syndrome Inclusion Criteria At DC or during hospital stay patient has or had the following: ACS DIAGNOSIS No Discharge Core Measures Meds if any: Prescribed or Continued at Discharge Meds if any: NOT Prescribed or Continued at Discharge Congestive Heart Failure Inclusion Criteria At DC or during hospital stay patient has or had the following: CHF DIAGNOSIS No Discharge Core Measures Meds if any: Prescribed or Continued at Discharge Meds if any: NOT Prescribed or Continued at Discharge Cerebrovascular accident Inclusion Criteria At DC or during hospital stay patient has or had the following: CVA/TIA Diagnosis No Discharge Core Measures Meds if any: Prescribed or Continued at Discharge Meds if any: NOT Prescribed or Continued at Discharge Venous thromboembolism Inclusion Criteria VTE Diagnosis Yes VTE Type Deep Venous Thrombosis VTE Confirmed by (Test) UNILATERAL VENOUS DOPPLER Discharge Core Measures - Per Current guidelines, there needs to be overlap - treatment for the first 5 days of Warfarin therapy. - If discharged on Warfarin prior to 5 days of - overlap therapy, the patient will need to be - assessed for post discharge needs including - *Post discharge parental anticoagulation - *Warfarin and/or parental anticoagulation education - *Follow up date to check INR post discharge At least 5 days overlap therapy as Inpatient Yes Meds if any: Prescribed or Continued at Discharge Note: Overlap Therapy is Warfarin and Anticoagulant Meds if any: NOT Prescribed or Continued at Discharge
[2016-10-22] MEDS ORDERED: LOVENOX40 MG/0.1 SC ×2 (09:09→09:59)
--- NOTE | 2016-10-22 10:00 | Discharge Summary ---
Visit Information Visit Dates Admission Date: 10/19/16 Discharge Date: 10/22/16 Hospital Course Course Attending Physician: HAKAN DIAZ MD Primary Care Physician: SHERWIN WITT DO Consulting Request: Consulting Specialty: Hematology/Oncology Consulting Physician: Dr. Francoise Jefferson Reason for Consult: DVT, eliquis failure Hospital Course: 56-year-old male with PMH significant for multiple DVT and bilateral subsegmental PE, RLE DVT in May 2014 (managed on Xarelto but switched to warfarin in September 2014 due to side effects, took it until May 2016 due to loss to follow up), admitted to [facility] on 09/19/2016 for DVT and bilat PE, discharged the next day on Eliquis, tobacco dependence, Factor V Leiden heterozygosity, was sent in by PCP for thrombus in the subclavian vein. Patient was following up with his PCP Dr. Witt on day of admission when he mentioned right upper extremity swelling. He was referred for an upper extremity ultrasound which was then positive for a thrombus in the subclavian vein. Pt referred to come to [facility]. He insists that he has been compliant with his Eliquis, although later admitted to missing a few night doses on and off. 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 Patient was subsequently discharged on coumadin 7.5 mg daily with lovenox bridging (100mg daily based on his weight), will follow up at coumadin clinic at [facility], and results will be forwarded to Dr. Francoise Jefferson. Allergies: Uncoded Allergies: SEASONAL ALLERGIES (Intermediate, NASAL CONGESTION 06/03/14) Disposition Summary Disposition Principal Diagnosis: Recurrent DVT Additional Diagnosis: Factor V Leiden heterozygosity Discharge Disposition: home or self care Discharge Instructions General Discharge Information Code Status: Full Code Patient's Diet: regular diet Patient's Activity: as tolerated Follow-Up Instructions/Appts: You were seen/treated for: Recurrent DVT Special Instructions: - Please get your INR checked at [address] [place] on Tuesday10/25/16 at 945am. - Results will be forwarded to Dr Ronny Owusu - Goal INR 2-3. Continue taking lovenox with coumadin until your INR is more than 2, then you can stop lovenox and continue coumadin. -Please follow up with PCP and vascular surgeon -Please get your family tested for factor V leiden mutation Medications at Discharge Discharge Medications: Stop taking the following medications: Apixaban (Eliquis) 5 MG TABLET ORAL SEE INSTRUCTIONS Days = 30 Continue taking these medications: Varenicline Tartrate (Chantix) 1 MG TABLET 1 Tablet ORAL TWICE DAILY Qty = 56 Start taking the following new medications: Enoxaparin Sodium (Lovenox) 40 MG/0.4 ML SYRINGE 100 Milligram Inject into fatty tissue DAILY Days = 5 No Refills Instructions: Stop lovenox once INR is more than 2 Warfarin Sodium (Coumadin) 7.5 MG TABLET 1 Tablet ORAL DAILY Qty = 30 No Refills Instructions: Follow up INR with Dr. Owusu Copies To: SHERWIN WITT DO, MD Review Statement Documenting Attending: EMILY OLSEN,HAKAN
--- NOTE | 2016-10-22 10:13 | PN- Hematology ---
Subjective Subjective: He feels well today. He has decided to go with warfarin. Review of Systems: Constitutional: Denies: chills, fever, weakness. Cardiovascular: Denies: palpitations. Respiratory: Denies: short of breath. Musculoskeletal: Reports: joint swelling. Hematologic/Endocrine: Denies: bruising, bleeding. All Other Systems: Reviewed and Negative Objective Vital Signs and I&Os Vital Signs Date Time Temp Pulse Resp B/P B/P Pulse O2 O2 Flow FiO2 Mean Ox Delivery Rate 10/22 0634 98.2 76 20 124/64 97 Room Air 10/21 2234 98.0 64 20 147/85 97 Room Air 10/21 1404 98.3 72 20 110/68 95 Intake & Output 10/22 1600 10/22 0800 10/22 0000 10/21 1600 10/21 0800 10/21 0000 Intake Total 620 1000 1052.8 252 550 Output Total Balance 620 1000 1052.8 252 550 Intake, IV 140 152.8 132 Intake, Oral 480 1000 900 120 550 Number 0 1 Bowel Movements Patient 64.155 kg Weight Weight Standing Scale Measurement Method Physical Exam: General Appearance: alert, awake, comfortable Head: atraumatic, normal appearance Respiratory: normal breath sounds, chest non-tender, no respiratory distress Cardiovascular: regular rate/rhythm, edema Gastrointestinal: normal bowel sounds, soft, non-tender Extremities: prominent vessels Neurologic/Psych: awake, alert, oriented x 3 Skin: intact, normal color Current Medications: Current Medications Sig/Amaya Start time Last Medication Dose Route Stop Time Status Admin Enoxaparin Sodium 100 MG DAILY 10/22 1000 AC SC Heparin Sodium 2,560 UNIT BOLUS ONE 10/21 2144 DC 10/21 (Porcine) IV 10/21 2145 214 Heparin Sodium 5,000 UNIT .STK-MED ONE 10/22 2139 DC (Porcine) IV 10/21 214 Heparin Sodium 5,000 UNIT .STK-MED ONE 10/21 1624 DC (Porcine) IV 10/21 162 Heparin Sodium 2,560 UNIT BOLUS ONE 10/21 162 DC 10/21 (Porcine) IV 10/21 162 1620 Heparin Sodium 25,000 UNIT Q24H 10/19 1615 DC 10/21 (Porcine) IV 2253 Sodium Chloride 500 ML Lorazepam See Dose Q1P PRN 10/20 0630 AC Insts (1) IV Lorazepam 0 Q1P PRN 10/19 2345 AC IV Nicotine 7 MG DAILY 10/20 1000 AC 10/20 TOP 1023 Varenicline 1 MG BID 10/19 2200 AC 10/22 PO 0927 Warfarin Sodium 10 MG COUMADIN 1700 ONE 10/22 1700 AC PO 10/22 1701 Warfarin Sodium 10 MG COUMADIN 1700 ONE 10/21 1700 DC 10/21 PO 10/21 1701 1656 Dose Instructions: (1)Lorazepam: See admin criteria Results Last 24 Hours of Lab Results: Laboratory Tests 10/22 10/22 10/22 10/21 10/21 0945 0635 0250 2030 1500 Coagulation PT (9.4 - 12.5 SEC) 11.6 INR (0.90 - 1.17) 1.11 APTT (25 - 37 SEC) Pending > 120 *H 58 H 54 H Assessment/Plan Assessment/Recommendations: Mr. Mills is a 56-year-old male with history of recurrent VTE (DVT/PE), alcohol usage, tobacco usage who presents to the hospital with new subclavian vein thrombosis. He noted RUE edema and erythema for 1 week and seen PCP for evaluation. He was noted to have new subclavian DVT while on apixaban. On further questioning, he has not been compliant with medications. Given non-compliance, he can be on apixaban or warfarin. He would like to go back on warfarin. He will continue on this indefinitely. Recommendations: 1. Transition to warfarin 2. Encourage alcohol cessation 3. Recommend family testing for FVL 4. Stress compliance with medications Please call [phone] with any questions. Problem List: 1. Factor V Leiden mutation 2. Subclavian vein thrombosis 3. DVT (deep venous thrombosis) 4. Pulmonary embolism
[2016-10-22 11:42] LABS: PTT 101 SEC (25-37)
--- NOTE | 2016-10-22 12:03 | NUR ---
NURSING NOTE: LOVENOX TEACHING DONE WITH PATIENT. PT WAS ABLE TO SHOW AND DEMONSTRATE LOVENOX ADMINISTRATION.
== END 2016-10-22 12:34 | DRG 300 ==
LOC: ERH 14:46 → ERHI 17:02 → 2NB 17:02 → CANRESERV 23:12 → ENRESERV 23:12 → ERHI 10-20 09:15 → ENRESERV 10-20 12:47 → CMPBEDREQ 10-20 12:51 → 2NB 10-20 14:17 → ENPENDDIS 10-22 11:22 → 2NB 10-22 12:34
PROVIDERS: Emergency Medicine; Internal Medicine; Radiology Diagnostic Radiology; Student in an Organized Health Care Education/Training Program; ADMIT Internal Medicine
DX: I82.B11 Acute embolism and thrombosis of right subclavian vein (principal); D68.59 Other primary thrombophilia; D68.51 Activated protein C resistance; Z86.711 Personal history of pulmonary embolism; Z86.718 Personal history of other venous thrombosis and embolism; Z79.01 Long term (current) use of anticoagulants; Z82.49 Family history of ischemic heart disease and other diseases of the circulatory system; F17.200 Nicotine dependence, unspecified, uncomplicated; F10.20 Alcohol dependence, uncomplicated; Y90.6 Blood alcohol level of 120-199 mg/100 ml
CPT/HCPCS: 2NBP; ERO; 36415; 93005; 93010; 93970; 96365; 96366; 96376; G0480; J1644; J1650